=== PATIENT | female | born 1950 | race Caucasian/White ===

== ENCOUNTER 2018-01-04 16:22 | Emergency (ER) | payer MEDICARE, MEDICAID ==
[~2018-01-04] VITALS: Ht 160 cm; Wt 82.3 kg
[~2018-01-04 16:22] MED LIST: ALBU18HF2 INH; AMIO200T57 PO; AMLO2.5T2 PO; BUDE10.2; FURO-150 PO; LOSA100T28; METF500T PO; SERT25TA PO; TIOT4MIS2; TIOT4MIS3
[2018-01-04 16:24] VITALS: BP 131/77
[2018-01-04] MEDS ORDERED: TETanus/Pertussis (Acell)/Diphther VAC/PF (Tdap-Adult) 0.5ml syringe IM ONE (17:20)
[2018-01-04] MEDS ORDERED: CLIN300C85 PO (17:25)
== END 2018-01-04 17:54 | disposition home or self-care (01) ==
LOC: ER 16:23
DX: L03.116 Cellulitis of left lower limb (principal); L97.329 Non-pressure chronic ulcer of left ankle with unspecified severity; I10 Essential (primary) hypertension; J44.9 Chronic obstructive pulmonary disease, unspecified; E11.9 Type 2 diabetes mellitus without complications; Z86.73 Personal history of transient ischemic attack (TIA), and cerebral infarction without residual deficits; Z98.890 Other specified postprocedural states; Z88.0 Allergy status to penicillin; Z88.8 Allergy status to other drugs, medicaments and biological substances; Z79.84 Long term (current) use of oral hypoglycemic drugs; Z79.899 Other long term (current) drug therapy
CPT/HCPCS: 90471; 90715; 99283

== ENCOUNTER 2018-04-25 08:00 | Outpatient (CLI) | payer MEDICARE, MEDICAID ==
[~2018-04-25 08:00] MED LIST changes: +AMIO200T40 PO; -AMIO200T57 PO; +CLIN300C85 PO; +LOSA100T15; -LOSA100T28
== END 2018-04-25 23:59 | disposition home or self-care (01) ==
LOC: RT 08:00
PROVIDERS: ATTEND Internal Medicine Critical Care Medicine
DX: J44.9 Chronic obstructive pulmonary disease, unspecified (principal); I11.0 Hypertensive heart disease with heart failure; I50.9 Heart failure, unspecified; E11.9 Type 2 diabetes mellitus without complications; I48.91 Unspecified atrial fibrillation; I25.2 Old myocardial infarction; I73.9 Peripheral vascular disease, unspecified; E78.5 Hyperlipidemia, unspecified; M81.0 Age-related osteoporosis without current pathological fracture; M19.90 Unspecified osteoarthritis, unspecified site; Z88.0 Allergy status to penicillin; Z88.5 Allergy status to narcotic agent; Z88.1 Allergy status to other antibiotic agents; Z88.8 Allergy status to other drugs, medicaments and biological substances; Z79.899 Other long term (current) drug therapy; Z79.84 Long term (current) use of oral hypoglycemic drugs; Z87.891 Personal history of nicotine dependence
CPT/HCPCS: 94618

== ENCOUNTER 2018-07-14 13:59 | Emergency (ER) | payer MEDICARE, MEDICAID ==
[~2018-07-14] VITALS: Ht 160 cm; Wt 81.0 kg
[~2018-07-14 13:59] MED LIST changes: -LOSA100T15; +LOSA100T57
[2018-07-14 14:38] LABS: BASOPHILS % (AUTO) 0.3 % (0-1); EOSINOPHILS # (AUTO) 0.5 X10'3 (0-0.9); EOSINOPHILS % (AUTO) 4.8 % (0-6); HEMATOCRIT 41.9 % (35.0-45.0); HEMOGLOBIN 13.6 g/dl (12.0-16.0); LYMPHOCYTES # (AUTO) 1.3 X10'3 (1.1-4.8); LYMPHOCYTES % (AUTO) 12.8 % (21-51); MEAN CORPUSCULAR HEMOGLOBIN 27.3 PG (27.0-31.0); MEAN CORPUSCULAR HGB CONC 32.5 % (33.0-36.5); MEAN PLATELET VOLUME 7.3 FL (7.4-10.4); MONOCYTES # (AUTO) 0.8 X10'3 (0-0.9); MONOCYTES % (AUTO) 7.6 % (2-12); NEUTROPHILS # (AUTO) 7.7 X10'3 (1.8-7.7); NEUTROPHILS % (AUTO) 74.5 % (42-75); PLATELET COUNT 335 X10'3 (140-440); RED BLOOD COUNT 4.99 X10'6 (4.20-5.60); WHITE BLOOD COUNT 10.4 X10'3 (4.5-11.0)
[2018-07-14 14:54] LABS: PARTIAL THROMBOPLASTIN TIME 28 SECONDS (22-32); PROTHROMBIN TIME 10.4 SECONDS (9.0-12.0)
[2018-07-14 15:00] LABS: ALANINE AMINOTRANSFERASE 34 U/L (12-78); ALBUMIN 3.5 G/DL (3.4-5.0); ALBUMIN/GLOBULIN RATIO 0.8 (1.1-1.5); ALKALINE PHOSPHATASE 93 IU/L (46-116); ANION GAP 6 (8-16); ASPARTATE AMINO TRANSFERASE 30 U/L (10-37); BLOOD UREA NITROGEN 20 MG/DL (7-18); BUN/CREATININE RATIO 21.3 (6.6-38.0); CALCIUM 8.6 MG/DL (8.5-10.1); CHLORIDE 103 MMOL/L (99-107); CREATININE 0.94 MG/DL (0.40-0.90); GLUCOSE 103 MG/DL (70-104); POTASSIUM 3.9 MMOL/L (3.5-5.1); SODIUM 140 MMOL/L (135-145); TOTAL CARBON DIOXIDE 30.8 MMOL/L (24-32); TOTAL PROTEIN 7.9 G/DL (6.4-8.2); eGFR 59 ML/MIN
[2018-07-14] MEDS ORDERED: levoFLOXACIN 750MG TABLET PO ONE (15:30)
[2018-07-14] MEDS ORDERED: furosemide 10 MG/1 ML 10ml inj IV ONE (15:30)
[2018-07-14] MEDS ORDERED: LEVO750T21 PO (15:31)
[2018-07-14] MEDS ORDERED: furosemide 20MG tablet PO ONE (15:35)
[2018-07-14 16:02] VITALS: BP 116/69
== END 2018-07-14 16:32 | disposition home or self-care (01) ==
LOC: ER 14:00
DX: I50.9 Heart failure, unspecified (principal); R05 Cough; I11.0 Hypertensive heart disease with heart failure; J44.9 Chronic obstructive pulmonary disease, unspecified; E11.9 Type 2 diabetes mellitus without complications; Z86.73 Personal history of transient ischemic attack (TIA), and cerebral infarction without residual deficits; Z87.891 Personal history of nicotine dependence; Z98.890 Other specified postprocedural states; Z88.0 Allergy status to penicillin; Z88.5 Allergy status to narcotic agent; Z79.1 Long term (current) use of non-steroidal anti-inflammatories (NSAID); Z79.899 Other long term (current) drug therapy
CPT/HCPCS: 36415; 71045; 80053; 83880; 84484; 85025; 85610; 85730; 93005; 99284

== ENCOUNTER 2018-08-16 18:28 | Emergency (ER) | payer MEDICARE, MEDICAID ==
[~2018-08-16] VITALS: Ht 157.5 cm; Wt 77.6 kg
[2018-08-16] MEDS ORDERED: LIDOcaine 1% w/epiNEPHrine 1:200,000 30ml vial IM ONE (19:50)
[2018-08-16] MEDS ORDERED: tetanus & diphtheria toxoid (Td) vaccine 0.5ml IMVAC ONE (20:15)
[2018-08-16] MEDS ORDERED: TETanus/Pertussis (Acell)/Diphther VAC/PF (Tdap-Adult) 0.5ml syringe IMVAC ONE (20:20)
[2018-08-16] MEDS ORDERED: CEPH500C5 PO (20:29)
[2018-08-16 20:38] VITALS: BP 102/72
== END 2018-08-16 21:00 | disposition home or self-care (01) ==
LOC: ER 18:29
DX: S71.112A Laceration without foreign body, left thigh, initial encounter (principal); S70.11XA Contusion of right thigh, initial encounter; M54.2 Cervicalgia; I11.0 Hypertensive heart disease with heart failure; I50.9 Heart failure, unspecified; J44.9 Chronic obstructive pulmonary disease, unspecified; E11.9 Type 2 diabetes mellitus without complications; Z88.1 Allergy status to other antibiotic agents; Z88.6 Allergy status to analgesic agent; Z79.899 Other long term (current) drug therapy; Z86.718 Personal history of other venous thrombosis and embolism; Z86.73 Personal history of transient ischemic attack (TIA), and cerebral infarction without residual deficits; W01.198A Fall on same level from slipping, tripping and stumbling with subsequent striking against other object, initial encounter; Y93.89 Activity, other specified; Y92.89 Other specified places as the place of occurrence of the external cause; Y99.8 Other external cause status; Z88.0 Allergy status to penicillin
CPT/HCPCS: 12002; 90471; 90715; 99284; J3490

== ENCOUNTER 2018-09-12 10:00 | Day surgery (SDC) | payer MEDICARE, MEDICAID ==
[~2018-09-12 10:00] MED LIST changes: +CEPH500C5 PO; +CLIN-96 PO; -CLIN300C85 PO
[2018-09-12] MEDS ORDERED: LIDOcaine/PRILOcaine 5gm cream TP ONE (10:57)
[2018-09-12] MEDS ORDERED: ATOR40TA PO (11:29)
[2018-09-12] MEDS ORDERED: GLIM4TAB79 PO (11:29)
--- NOTE | 2018-09-12 11:45 | NUR ---
Patient ambulated independently from [place] with her home O2 accompanied by her sister and was admitted to outpatient wound care for physician visit with Jarred Velasquez MD. Dressing removed, wound cleansed and Emla cream applied per order. New patient assessment completed with review of patient's medical history and current medications. 1104 - blood glucose 150. Patient instructed that elevated blood sugars delay healing of the wound and can cause further complications including but not limited to amputation of toes or feet. 1100 - Dr. Velasquez at bedside accompanied by RN. Wound assessed, time out performed by MD/RN. Wound debrided as detailed in the physician progress/procedure note. Plan of care discussed with patient. Dressings placed per MD orders. Patient instructed on the signs and symptoms of infection and to call the Wound Center if any occur or to go to the ED if we are closed: Increased pain in wound Increase in drainage from the wound Redness in the skin surrounding the wound Bleeding from the wound Temperature of 101 or greater Patient instructed that the weight of their body puts a large amount of pressure on their wounds. This pressure keeps the new tissue from growing and inhibits new blood vessels from forming. Explained that, if they continue to bear weight on a body part that has a wound, the time it takes to heal the wound increases, the wound may get worse or the wound may not heal at all. Patient verbalized understanding of all discharge instructions and plan of care and ambulated accompanied by her sister independently out to [facility] in stable condition with no sign or symptom of distress at time of discharge.
== END 2018-09-12 12:50 | disposition home or self-care (01) ==
LOC: WOUND CARE 10:00
PROVIDERS: ATTEND Surgery
DX: E11.622 Type 2 diabetes mellitus with other skin ulcer (principal); L98.492 Non-pressure chronic ulcer of skin of other sites with fat layer exposed; E11.65 Type 2 diabetes mellitus with hyperglycemia; J44.9 Chronic obstructive pulmonary disease, unspecified; I11.0 Hypertensive heart disease with heart failure; I50.9 Heart failure, unspecified; Z79.899 Other long term (current) drug therapy; Z86.718 Personal history of other venous thrombosis and embolism; Z86.73 Personal history of transient ischemic attack (TIA), and cerebral infarction without residual deficits
CPT/HCPCS: 82948; A6021; A6206; A6212

== ENCOUNTER 2018-09-18 09:55 | Day surgery (SDC) | payer MEDICARE, MEDICAID ==
[~2018-09-18 09:55] MED LIST changes: +ATOR40TA PO; -CEPH500C5 PO; -CLIN-96 PO; +GLIM4TAB79 PO
[2018-09-18] MEDS ORDERED: LIDOcaine/PRILOcaine 5gm cream TP ONE (10:30)
--- NOTE | 2018-09-18 13:55 | NUR ---
Patient ambulated independently from [facility] and was admitted to outpatient wound care for physician visit with Jarred Velasquez MD. Dressing removed, wound cleansed and Emla cream applied per order. Patient assessed for changes in conditions, medications and medical history. Dr. Velasquez at bedside accompanied by RN. Wound assessed, time out performed by MD/RN. Wound debrided as detailed in the physician progress/procedure note. Plan of care discussed with patient. Dressings placed per MD orders. Patient instructed on the signs and symptoms of infection and to call the Wound Center if any occur or to go to the ED if we are closed: Increased pain in wound Increase in drainage from the wound Redness in the skin surrounding the wound Bleeding from the wound Temperature of 101 or greater Patient instructed that elevated blood sugars delay healing of the wound and can cause further complications including but not limited to amputation of toes or feet. Patient instructed that the weight of their body puts a large amount of pressure on their wounds. This pressure keeps the new tissue from growing and inhibits new blood vessels from forming. Explained that, if they continue to bear weight on a body part that has a wound, the time it takes to heal the wound increases, the wound may get worse or the wound may not heal at all. Patient verbalized understanding of all discharge instructions and plan of care and ambulated independently out to [facility] in stable condition with no sign or symptom of distress at time of discharge. Addendum: 09/18/18 at 1359 by Dana Delaney RN Amended: Links added.
== END 2018-09-18 11:48 | disposition home or self-care (01) ==
LOC: WOUND CARE 09:55
PROVIDERS: ATTEND Surgery
DX: E11.622 Type 2 diabetes mellitus with other skin ulcer (principal); L98.492 Non-pressure chronic ulcer of skin of other sites with fat layer exposed; E11.65 Type 2 diabetes mellitus with hyperglycemia; J44.9 Chronic obstructive pulmonary disease, unspecified; I11.0 Hypertensive heart disease with heart failure; I50.9 Heart failure, unspecified; M19.90 Unspecified osteoarthritis, unspecified site; Z79.899 Other long term (current) drug therapy; Z86.718 Personal history of other venous thrombosis and embolism; Z86.73 Personal history of transient ischemic attack (TIA), and cerebral infarction without residual deficits; Z87.442 Personal history of urinary calculi
CPT/HCPCS: 11042; 36416; 82948; A6209; A6021; A6206

== ENCOUNTER 2018-09-25 10:14 | Day surgery (SDC) | payer MEDICARE, MEDICAID ==
[2018-09-25] MEDS ORDERED: LIDOcaine/PRILOcaine 5gm cream TP ONE (11:03)
--- NOTE | 2018-09-25 11:48 | NUR ---
Patient ambulated independently from [facility] with O2 @ 3liters. Patient admitted to outpatient wound care for physician visit with Jarred Velasquez MD. Dressing removed, wound cleansed and Emla cream applied per order. Patient assessed for changes in conditions, medications and medical history. Dr. Velasquez at bedside accompanied by RN. Wound assessed, time out performed by MD/RN. Wound debrided as detailed in the physician progress/procedure note. Plan of care discussed with patient. Dressings placed per MD orders. Patient instructed on the signs and symptoms of infection and to call the Wound Center if any occur or to go to the ED if we are closed: Increased pain in wound Increase in drainage from the wound Redness in the skin surrounding the wound Bleeding from the wound Temperature of 101 or greater Patient instructed that elevated blood sugars delay healing of the wound and can cause further complications including but not limited to amputation of toes or feet. Patient instructed that the weight of their body puts a large amount of pressure on their wounds. This pressure keeps the new tissue from growing and inhibits new blood vessels from forming. Explained that, if they continue to bear weight on a body part that has a wound, the time it takes to heal the wound increases, the wound may get worse or the wound may not heal at all. Patient verbalized understanding of all discharge instructions and plan of care and ambulated independently out to [facility] in stable condition with no sign or symptom of distress at time of discharge. Addendum: 09/25/18 at 1152 by Dana Delaney RN Amended: Links added.
== END 2018-09-25 12:10 | disposition home or self-care (01) ==
LOC: WOUND CARE 10:14
PROVIDERS: ATTEND Surgery
DX: E11.622 Type 2 diabetes mellitus with other skin ulcer (principal); L98.492 Non-pressure chronic ulcer of skin of other sites with fat layer exposed; E11.65 Type 2 diabetes mellitus with hyperglycemia; J44.9 Chronic obstructive pulmonary disease, unspecified; I11.0 Hypertensive heart disease with heart failure; I50.9 Heart failure, unspecified; M19.90 Unspecified osteoarthritis, unspecified site; Z79.899 Other long term (current) drug therapy; Z86.718 Personal history of other venous thrombosis and embolism; Z86.73 Personal history of transient ischemic attack (TIA), and cerebral infarction without residual deficits; Z87.442 Personal history of urinary calculi
CPT/HCPCS: 36416; 82948; A6209; A6222; C5271; Q4102; A6250

== ENCOUNTER 2018-10-02 10:35 | Outpatient (CLI) | payer MEDICARE, MEDICAID ==
--- NOTE | 2018-10-02 12:30 | NUR ---
Patient ambulated independently from [facility] and was admitted to outpatient wound care for physician visit with Jarred Velasquez MD. Dressing removed, wound cleansed. Patient assessed for changes in conditions, medications and medical history. 1121 - blood glucose 72. Patient is informed of her reading by RN and asked if she felt good with this blood sugar and patient stated "yes". 1145 - Dr. Velasquez at bedside accompanied by RN. Wound assessed by MD, orders written Plan of care discussed with patient. Dressings placed per MD orders. Patient instructed on the signs and symptoms of infection and to call the Wound Center if any occur or to go to the ED if we are closed: Increased pain in wound Increase in drainage from the wound Redness in the skin surrounding the wound Bleeding from the wound Temperature of 101 or greater Patient instructed that the weight of their body puts a large amount of pressure on their wounds. This pressure keeps the new tissue from growing and inhibits new blood vessels from forming. Explained that, if they continue to bear weight on a body part that has a wound, the time it takes to heal the wound increases, the wound may get worse or the wound may not heal at all. Patient verbalized understanding of all discharge instructions and plan of care and ambulated independently out to [facility] in stable condition with no sign or symptom of distress at time of discharge.
== END 2018-10-02 12:02 | disposition home or self-care (01) ==
LOC: WOUND CARE 10:35
PROVIDERS: ATTEND Surgery
DX: E11.622 Type 2 diabetes mellitus with other skin ulcer (principal); L97.821 Non-pressure chronic ulcer of other part of left lower leg limited to breakdown of skin; E11.65 Type 2 diabetes mellitus with hyperglycemia; J44.9 Chronic obstructive pulmonary disease, unspecified; I11.0 Hypertensive heart disease with heart failure; I50.9 Heart failure, unspecified; M19.90 Unspecified osteoarthritis, unspecified site; Z79.899 Other long term (current) drug therapy; Z86.718 Personal history of other venous thrombosis and embolism; Z86.73 Personal history of transient ischemic attack (TIA), and cerebral infarction without residual deficits; Z87.442 Personal history of urinary calculi
CPT/HCPCS: 82948; G0463; A4615; A6021; A6212

== ENCOUNTER 2018-10-10 11:30 | Day surgery (SDC) | payer MEDICARE, MEDICAID ==
[2018-10-10] MEDS ORDERED: LIDOcaine/PRILOcaine 5gm cream TP ONE (11:55)
--- NOTE | 2018-10-10 12:45 | NUR ---
Patient ambulated with walker from [facility] and was admitted to outpatient wound care for physician visit with Jarred Velasquez MD. Dressing removed, wound cleansed and Emla cream applied per order. Patient assessed for changes in conditions, medications and medical history. 1215 - Dr. Velasquez at bedside accompanied by RN. Wound assessed, time out performed by MD/RN. Wound debrided and procedure performed as detailed in the physician progress/procedure note. Plan of care discussed with patient. Dressings placed per MD orders. Patient instructed on the signs and symptoms of infection and to call the Wound Center if any occur or to go to the ED if we are closed: Increased pain in wound Increase in drainage from the wound Redness in the skin surrounding the wound Bleeding from the wound Temperature of 101 or greater Patient instructed that the weight of their body puts a large amount of pressure on their wounds. This pressure keeps the new tissue from growing and inhibits new blood vessels from forming. Explained that, if they continue to bear weight on a body part that has a wound, the time it takes to heal the wound increases, the wound may get worse or the wound may not heal at all. Patient verbalized understanding of all discharge instructions and plan of care and ambulated with walker out to [facility] in stable condition with no sign or symptom of distress at time of discharge.
== END 2018-10-10 12:25 | disposition home or self-care (01) ==
LOC: WOUND CARE 11:30
PROVIDERS: ATTEND Surgery
DX: E11.622 Type 2 diabetes mellitus with other skin ulcer (principal); L97.821 Non-pressure chronic ulcer of other part of left lower leg limited to breakdown of skin; E11.65 Type 2 diabetes mellitus with hyperglycemia; J44.9 Chronic obstructive pulmonary disease, unspecified; I11.0 Hypertensive heart disease with heart failure; I50.9 Heart failure, unspecified; M19.90 Unspecified osteoarthritis, unspecified site; Z79.899 Other long term (current) drug therapy; Z86.718 Personal history of other venous thrombosis and embolism; Z86.73 Personal history of transient ischemic attack (TIA), and cerebral infarction without residual deficits; Z87.442 Personal history of urinary calculi
CPT/HCPCS: A6209; A6222; C5271; Q4102; A4615; A6250; A6446

== ENCOUNTER 2018-10-15 08:49 | Outpatient (CLI) | payer MEDICARE, MEDICAID ==
--- NOTE | 2018-10-15 10:26 | NUR ---
Patient ambulated independently from [facility] and was admitted to outpatient wound care clinic for nursing visit, under direct supervision of . Patient placed on O2 @3liters per order. Dressing removed, graft in place. Wound cleansed with normal saline. Patient assessed for changes in conditions, medications and medical history. Dressings reapplied per physician orders. Patient instructed on the signs and symptoms of infection and to call the Wound Center if any occur or to go to the ED if we are closed: Increased pain in wound Increase in drainage from the wound Redness in the skin surrounding the wound Bleeding from the wound Temperature of 101 or greater Patient instructed that the weight of their body puts a large amount of pressure on their wounds. This pressure keeps the new tissue from growing and inhibits new blood vessels from forming. Explained that, if they continue to bear weight on a body part that has a wound, the time it takes to heal the wound increases, the wound may get worse or the wound may not heal at all. Patient verbalized understanding of all discharge instructions and plan of care and ambulated independently out to [facility] in stable condition with no sign or symptom of distress at time of discharge. Addendum: 10/15/18 at 1030 by Dana Delaney RN Amended: Links added.
== END 2018-10-15 09:19 | disposition home or self-care (01) ==
LOC: WOUND CARE 08:49 → EDSTATUS 09:00 → WOUND CARE 09:19
PROVIDERS: ATTEND Surgery
DX: E11.622 Type 2 diabetes mellitus with other skin ulcer (principal); L97.821 Non-pressure chronic ulcer of other part of left lower leg limited to breakdown of skin; E11.65 Type 2 diabetes mellitus with hyperglycemia; J44.9 Chronic obstructive pulmonary disease, unspecified; I11.0 Hypertensive heart disease with heart failure; I50.9 Heart failure, unspecified; M19.90 Unspecified osteoarthritis, unspecified site; Z79.899 Other long term (current) drug therapy; Z86.718 Personal history of other venous thrombosis and embolism; Z86.73 Personal history of transient ischemic attack (TIA), and cerebral infarction without residual deficits; Z87.442 Personal history of urinary calculi
CPT/HCPCS: 82948; G0463; A6212

== ENCOUNTER 2018-10-17 09:00 | Outpatient (CLI) | payer MEDICARE, MEDICAID ==
--- NOTE | 2018-10-17 15:18 | NUR ---
Patient ambulated independently from [facility] and was admitted to outpatient wound care for physician visit with Jarred Velasquez MD. Dressing removed and wound cleansed. Patient assessed for changes in conditions, medications and medical history. Dr. Velasquez at bedside accompanied by RN. Wound assessed, time out performed by MD/RN. Wound debrided as detailed in the physician progress/procedure note. Plan of care discussed with patient. Dressings placed per MD orders. Patient instructed on the signs and symptoms of infection and to call the Wound Center if any occur or to go to the ED if we are closed: Increased pain in wound Increase in drainage from the wound Redness in the skin surrounding the wound Bleeding from the wound Temperature of 101 or greater Patient instructed that elevated blood sugars delay healing of the wound and can cause further complications including but not limited to amputation of toes or feet. Patient instructed that the weight of their body puts a large amount of pressure on their wounds. This pressure keeps the new tissue from growing and inhibits new blood vessels from forming. Explained that, if they continue to bear weight on a body part that has a wound, the time it takes to heal the wound increases, the wound may get worse or the wound may not heal at all. Patient verbalized understanding of all discharge instructions and plan of care and ambulated independently out to [facility] in stable condition with no sign or symptom of distress at time of discharge. Addendum: 10/17/18 at 1522 by Dana Delaney RN Amended: Links added.
== END 2018-10-17 11:20 | disposition home or self-care (01) ==
LOC: EDSTATUS 09:00 → WOUND CARE 09:00
PROVIDERS: ATTEND Surgery
DX: E11.622 Type 2 diabetes mellitus with other skin ulcer (principal); L97.821 Non-pressure chronic ulcer of other part of left lower leg limited to breakdown of skin; E11.65 Type 2 diabetes mellitus with hyperglycemia; J44.9 Chronic obstructive pulmonary disease, unspecified; I11.0 Hypertensive heart disease with heart failure; I50.9 Heart failure, unspecified; M19.90 Unspecified osteoarthritis, unspecified site; Z79.899 Other long term (current) drug therapy; Z86.718 Personal history of other venous thrombosis and embolism; Z86.73 Personal history of transient ischemic attack (TIA), and cerebral infarction without residual deficits; Z87.442 Personal history of urinary calculi
CPT/HCPCS: 36416; 82948; G0463; A6021; A6206; A6212

== ENCOUNTER 2018-10-24 08:45 | Day surgery (SDC) | payer MEDICARE, MEDICAID ==
[2018-10-24] MEDS ORDERED: LIDOcaine/PRILOcaine 5gm cream TP ONE (09:47)
--- NOTE | 2018-10-24 14:17 | NUR ---
0900 Patient ambulated safely into [facility]. Patient admitted to outpatient wound care clinic for follow-up visit with physician. Dressing removed, wound cleansed. Patient assessed for changes in conditions, medications and medical history. Patient showed no s/s of distress at time of assessment. 0955 at bedside accompanied by RN. Wounds assessed, time out performed and debridement with application of [place] wound matrix done today as detailed in the physician progress/procedure note. Plan of care discussed with patient. Dressings placed per MD orders. Patient instructed on the signs and symptoms of infection and to call the Wound Center if any occur or to go to the ED if we are closed: Increased pain in wound Increase in drainage from the wound Redness in the skin surrounding the wound Bleeding from the wound Temperature of 101 or greater Patient instructed that the weight of their body puts a large amount of pressure on their wounds. This pressure keeps the new tissue from growing and inhibits new blood vessels from forming. Explained that, if they continue to bear weight on a body part that has a wound, the time it takes to heal the wound increases, the wound may get worse or the wound may not heal at all. Patient verbalized understanding of all discharge instructions and plan of care. Patient ambulated independently out to [facility] and is in stable condition with no sign or symptom of distress at time of discharge.
== END 2018-10-24 10:35 | disposition home or self-care (01) ==
LOC: WOUND CARE 08:45
PROVIDERS: ATTEND Surgery
DX: E11.622 Type 2 diabetes mellitus with other skin ulcer (principal); L97.821 Non-pressure chronic ulcer of other part of left lower leg limited to breakdown of skin; E11.65 Type 2 diabetes mellitus with hyperglycemia; J44.9 Chronic obstructive pulmonary disease, unspecified; I11.0 Hypertensive heart disease with heart failure; I50.9 Heart failure, unspecified; M19.90 Unspecified osteoarthritis, unspecified site; Z79.899 Other long term (current) drug therapy; Z86.718 Personal history of other venous thrombosis and embolism; Z86.73 Personal history of transient ischemic attack (TIA), and cerebral infarction without residual deficits; Z87.442 Personal history of urinary calculi
CPT/HCPCS: 36416; 82948; A6222; C5271; Q4102; A6250

== ENCOUNTER 2018-10-31 08:40 | Outpatient (CLI) | payer MEDICARE, MEDICAID ==
--- NOTE | 2018-10-31 10:45 | NUR ---
Patient ambulated independently from [facility] and was admitted to outpatient wound care for physician visit with Jarred Velasquez MD. Dressing removed, wound cleansed. Patient assessed for changes in conditions, medications and medical history. 0929 - blood glucose 97. Patient instructed that elevated blood sugars delay healing of the wound and can cause further complications including but not limited to amputation of toes or feet. 1005 - Dr. Velasquez at bedside accompanied by RN. Wound assessed by MD, orders written. Plan of care discussed with patient. Dressings placed per MD orders. Patient instructed on the signs and symptoms of infection and to call the Wound Center if any occur or to go to the ED if we are closed: Increased pain in wound Increase in drainage from the wound Redness in the skin surrounding the wound Bleeding from the wound Temperature of 101 or greater Patient instructed that the weight of their body puts a large amount of pressure on their wounds. This pressure keeps the new tissue from growing and inhibits new blood vessels from forming. Explained that, if they continue to bear weight on a body part that has a wound, the time it takes to heal the wound increases, the wound may get worse or the wound may not heal at all. Patient verbalized understanding of all discharge instructions and plan of care and ambulated independently out to [facility] in stable condition with no sign or symptom of distress at time of discharge.
== END 2018-10-31 10:20 | disposition home or self-care (01) ==
LOC: WOUND CARE 08:40 → EDSTATUS 09:00 → WOUND CARE 10:20
PROVIDERS: ATTEND Surgery
DX: E11.622 Type 2 diabetes mellitus with other skin ulcer (principal); L97.821 Non-pressure chronic ulcer of other part of left lower leg limited to breakdown of skin; E11.65 Type 2 diabetes mellitus with hyperglycemia; J44.9 Chronic obstructive pulmonary disease, unspecified; I11.0 Hypertensive heart disease with heart failure; I50.9 Heart failure, unspecified; M19.90 Unspecified osteoarthritis, unspecified site; Z79.899 Other long term (current) drug therapy; Z86.718 Personal history of other venous thrombosis and embolism; Z86.73 Personal history of transient ischemic attack (TIA), and cerebral infarction without residual deficits; Z87.442 Personal history of urinary calculi
CPT/HCPCS: 36416; 82948; A6222; G0463; A4615; A6212

== ENCOUNTER 2018-11-07 08:50 | Outpatient (CLI) | payer MEDICARE, MEDICAID ==
[2018-11-07] MEDS ORDERED: dextrose ORAL solution 15 GM/59 ML bottle ONE (09:56)
--- NOTE | 2018-11-07 14:45 | NUR ---
Patient ambulated independently from [facility] and was admitted to outpatient wound care for physician visit with Jarred Velasquez MD. Dressing removed, wound cleansed. Patient assessed for changes in conditions, medications and medical history. 0955 - blood glucose 59. Dex 4 given per protocol. Patient states she is "fasting" for bloodwork today yet nonetheless she took her oral diabetic medication; patient is advised by RN that this is not a good idea. 1010 - Dr. Velasquez at bedside accompanied by RN. Wound assessed by MD and is declared healed. Patient discharged from the wound clinic to follow up on an as needed basis. Plan of care discussed with patient. Dressings placed per MD orders. 1025 - glucose check is 94. Patient is advised to get food as soon as she has her blood drawn, which she is on her way to do at this time. Patient instructed on the signs and symptoms of infection and to call the Wound Center if any occur or to go to the ED if we are closed: Increased pain in wound Increase in drainage from the wound Redness in the skin surrounding the wound Bleeding from the wound Temperature of 101 or greater Patient instructed that the weight of their body puts a large amount of pressure on their wounds. This pressure keeps the new tissue from growing and inhibits new blood vessels from forming. Explained that, if they continue to bear weight on a body part that has a wound, the time it takes to heal the wound increases, the wound may get worse or the wound may not heal at all. Patient verbalized understanding of all discharge instructions and plan of care and ambulated independently out to [facility] in stable condition with no sign or symptom of distress at time of discharge.
== END 2018-11-07 10:32 | disposition home or self-care (01) ==
LOC: WOUND CARE 08:50 → EDSTATUS 09:00 → WOUND CARE 10:32
PROVIDERS: ATTEND Surgery
DX: E11.622 Type 2 diabetes mellitus with other skin ulcer (principal); L97.821 Non-pressure chronic ulcer of other part of left lower leg limited to breakdown of skin; E11.65 Type 2 diabetes mellitus with hyperglycemia; J44.9 Chronic obstructive pulmonary disease, unspecified; I11.0 Hypertensive heart disease with heart failure; I50.9 Heart failure, unspecified; M19.90 Unspecified osteoarthritis, unspecified site; Z79.899 Other long term (current) drug therapy; Z86.718 Personal history of other venous thrombosis and embolism; Z86.73 Personal history of transient ischemic attack (TIA), and cerebral infarction without residual deficits; Z87.442 Personal history of urinary calculi
CPT/HCPCS: 36416; 82948; G0463; A6021; A6206; A6212

== ENCOUNTER 2019-03-11 13:58 | Emergency (ER) | payer MEDICARE, MEDICAID ==
[~2019-03-11] VITALS: Ht 160 cm; Wt 80.0 kg
[~2019-03-11 13:58] MED LIST changes: -AMIO200T40 PO; +AMIO200T61 PO; +GLIM4TAB4 PO; -GLIM4TAB79 PO
[2019-03-11 14:14] VITALS: BP 113/60
[2019-03-11 14:39] LABS: BASOPHILS # (AUTO) 0.1 X10'3 (0-0.2); BASOPHILS % (AUTO) 1.1 % (0-1); EOSINOPHILS # (AUTO) 0.3 X10'3 (0-0.9); HEMATOCRIT 36.6 % (35.0-45.0); HEMOGLOBIN 11.7 g/dl (12.0-16.0); LYMPHOCYTES # (AUTO) 1.6 X10'3 (1.1-4.8); MEAN CORPUSCULAR HEMOGLOBIN 26.4 PG (27.0-31.0); MEAN CORPUSCULAR HGB CONC 31.9 g/dL (33.0-36.5); MEAN CORPUSCULAR VOLUME 82.8 FL (78-98); MEAN PLATELET VOLUME 7.4 FL (7.4-10.4); MONOCYTES # (AUTO) 0.8 X10'3 (0-0.9); MONOCYTES % (AUTO) 11.6 % (2-12); NEUTROPHILS # (AUTO) 4.1 X10'3 (1.8-7.7); NEUTROPHILS % (AUTO) 60.3 % (42-75); PLATELET COUNT 293 X10'3 (140-440); RED BLOOD COUNT 4.41 X10'6 (4.20-5.60); RED CELL DISTRIBUTION WIDTH 17.8 % (11.5-14.5); WHITE BLOOD COUNT 6.9 X10'3 (4.5-11.0)
[2019-03-11 14:52] LABS: ALANINE AMINOTRANSFERASE 27 U/L (12-78); ALBUMIN 3.3 G/DL (3.4-5.0); ALBUMIN/GLOBULIN RATIO 0.8 (1.1-1.5); ALKALINE PHOSPHATASE 90 IU/L (46-116); ANION GAP 6 (8-16); ASPARTATE AMINO TRANSFERASE 21 U/L (10-37); BILIRUBIN,TOTAL 0.6 MG/DL (0.1-1.0); BLOOD UREA NITROGEN 25 MG/DL (7-18); BUN/CREATININE RATIO 26.6 (6.6-38.0); CALCIUM 8.6 MG/DL (8.5-10.1); CHLORIDE 106 MMOL/L (99-107); CREATININE 0.94 MG/DL (0.40-0.90); GLUCOSE 194 MG/DL (70-104); PARTIAL THROMBOPLASTIN TIME 27 SECONDS (22-32); POTASSIUM 4.4 MMOL/L (3.5-5.1); SODIUM 142 MMOL/L (135-145); TOTAL CARBON DIOXIDE 29.7 MMOL/L (24-32); TOTAL PROTEIN 7.5 G/DL (6.4-8.2); eGFR 59 ML/MIN
[2019-03-11] MEDS ORDERED: ipratropium/albuterol 3ml nebule NEB ONE (15:50)
[2019-03-11] MEDS ORDERED: methylPREDNISolone sod succ 125mg/2ml vial IV ONE (15:50)
[2019-03-11] MEDS ORDERED: predniSONE 20 mg tablet PO ONE (16:35)
[2019-03-11] MEDS ORDERED: ipratropium/albuterol 3ml nebule ONE (17:16)
[2019-03-11] MEDS ORDERED: PRED20TA PO (17:20)
== END 2019-03-11 17:41 | disposition home or self-care (01) ==
LOC: ER 13:59
DX: J44.1 Chronic obstructive pulmonary disease with (acute) exacerbation (principal); I48.91 Unspecified atrial fibrillation; I50.9 Heart failure, unspecified; E11.9 Type 2 diabetes mellitus without complications; Z86.73 Personal history of transient ischemic attack (TIA), and cerebral infarction without residual deficits; Z98.890 Other specified postprocedural states; Z88.0 Allergy status to penicillin; Z88.1 Allergy status to other antibiotic agents; Z88.5 Allergy status to narcotic agent; Z79.84 Long term (current) use of oral hypoglycemic drugs; Z79.899 Other long term (current) drug therapy
CPT/HCPCS: 36415; 71045; 80053; 84484; 85025; 85610; 85730; 93005; 94640; 99284; J7512

== ENCOUNTER 2019-06-02 12:20 | Emergency (ER) | payer MEDICARE, MEDICAID ==
[~2019-06-02] VITALS: Ht 157.5 cm; Wt 90.0 kg
[2019-06-02 13:06] LABS: BASOPHILS # (AUTO) 0.1 X10'3 (0-0.2); BASOPHILS % (AUTO) 0.7 % (0-1); EOSINOPHILS # (AUTO) 0.2 X10'3 (0-0.9); EOSINOPHILS % (AUTO) 2.5 % (0-6); HEMATOCRIT 37.5 % (35.0-45.0); LYMPHOCYTES # (AUTO) 1.2 X10'3 (1.1-4.8); MEAN CORPUSCULAR HEMOGLOBIN 26.4 PG (27.0-31.0); MEAN CORPUSCULAR HGB CONC 32.1 g/dL (33.0-36.5); MEAN CORPUSCULAR VOLUME 82.1 FL (78-98); MEAN PLATELET VOLUME 8.3 FL (7.4-10.4); MONOCYTES # (AUTO) 0.8 X10'3 (0-0.9); MONOCYTES % (AUTO) 11.3 % (2-12); NEUTROPHILS # (AUTO) 4.8 X10'3 (1.8-7.7); NEUTROPHILS % (AUTO) 68.5 % (42-75); PLATELET COUNT 227 X10'3 (140-440); RED BLOOD COUNT 4.56 X10'6 (4.20-5.60); RED CELL DISTRIBUTION WIDTH 16.3 % (11.5-14.5)
[2019-06-02 13:17] LABS: ALANINE AMINOTRANSFERASE 35 U/L (12-78); ALBUMIN 3.4 G/DL (3.4-5.0); ALBUMIN/GLOBULIN RATIO 0.9 (1.1-1.5); ALKALINE PHOSPHATASE 121 IU/L (46-116); ANION GAP 6 (8-16); ASPARTATE AMINO TRANSFERASE 26 U/L (10-37); BILIRUBIN,TOTAL 1.6 MG/DL (0.1-1.0); BLOOD UREA NITROGEN 27 MG/DL (7-18); BUN/CREATININE RATIO 26.2 (6.6-38.0); CALCIUM 9.3 MG/DL (8.5-10.1); CHLORIDE 102 MMOL/L (99-107); CREATININE 1.03 MG/DL (0.40-0.90); GLUCOSE 195 MG/DL (70-104); POTASSIUM 4.4 MMOL/L (3.5-5.1); SODIUM 142 MMOL/L (135-145); TOTAL CARBON DIOXIDE 34.1 MMOL/L (24-32); TOTAL PROTEIN 7.3 G/DL (6.4-8.2); eGFR 53 ML/MIN
[2019-06-02] MEDS ORDERED: ipratropium/albuterol 3ml nebule NEB ONE (14:20)
[2019-06-02] MEDS ORDERED: albuterol 2.5 MG/3 ML nebule NEB ONE (14:20)
[2019-06-02] MEDS ORDERED: methylPREDNISolone sod succ 125mg/2ml vial IV ONE (14:20)
[2019-06-02] MEDS ORDERED: AZIT250T PO (15:09)
[2019-06-02] MEDS ORDERED: PRED20TA PO (15:09)
[2019-06-02] MEDS ORDERED: azithromycin 250mg tablet PO ONE (15:10)
[2019-06-02 15:12] VITALS: BP 165/72
== END 2019-06-02 15:23 | disposition home or self-care (01) ==
LOC: ER 12:20
DX: J44.1 Chronic obstructive pulmonary disease with (acute) exacerbation (principal); I50.9 Heart failure, unspecified; I11.0 Hypertensive heart disease with heart failure; E11.9 Type 2 diabetes mellitus without complications; Z98.890 Other specified postprocedural states; Z86.73 Personal history of transient ischemic attack (TIA), and cerebral infarction without residual deficits; Z88.0 Allergy status to penicillin; Z88.5 Allergy status to narcotic agent; Z79.899 Other long term (current) drug therapy; Z79.2 Long term (current) use of antibiotics
CPT/HCPCS: 36415; 71045; 80053; 83880; 84484; 85025; 93005; 94640; 94760; 96374; 99284; J2930

== ENCOUNTER 2019-07-09 12:50 | Emergency (ER) | payer MEDICARE, MEDICAID ==
[~2019-07-09] VITALS: Ht 158.8 cm; Wt 90.9 kg
[~2019-07-09 12:50] MED LIST changes: +AZIT250T PO; -GLIM4TAB4 PO; +GLIM4TAB7 PO
[2019-07-09 13:38] LABS: BASOPHILS % (AUTO) 0.5 % (0-1); EOSINOPHILS # (AUTO) 0.4 X10'3 (0-0.9); EOSINOPHILS % (AUTO) 5.2 % (0-6); HEMATOCRIT 37.8 % (35.0-45.0); HEMOGLOBIN 12.1 g/dl (12.0-16.0); LYMPHOCYTES # (AUTO) 1.4 X10'3 (1.1-4.8); LYMPHOCYTES % (AUTO) 18.1 % (21-51); MEAN CORPUSCULAR VOLUME 81.1 FL (78-98); MEAN PLATELET VOLUME 8.1 FL (7.4-10.4); MONOCYTES # (AUTO) 0.8 X10'3 (0-0.9); MONOCYTES % (AUTO) 10.7 % (2-12); NEUTROPHILS # (AUTO) 4.9 X10'3 (1.8-7.7); NEUTROPHILS % (AUTO) 65.5 % (42-75); PLATELET COUNT 253 X10'3 (140-440); RED BLOOD COUNT 4.66 X10'6 (4.20-5.60); RED CELL DISTRIBUTION WIDTH 16.5 % (11.5-14.5); WHITE BLOOD COUNT 7.5 X10'3 (4.5-11.0)
[2019-07-09 13:52] LABS: ALANINE AMINOTRANSFERASE 28 U/L (12-78); ALBUMIN 3.2 G/DL (3.4-5.0); ALBUMIN/GLOBULIN RATIO 0.9 (1.1-1.5); ALKALINE PHOSPHATASE 100 IU/L (46-116); ANION GAP 2 (8-16); ASPARTATE AMINO TRANSFERASE 22 U/L (10-37); BILIRUBIN,TOTAL 1.1 MG/DL (0.1-1.0); BLOOD UREA NITROGEN 20 MG/DL (7-18); BUN/CREATININE RATIO 22.2 (6.6-38.0); CALCIUM 8.8 MG/DL (8.5-10.1); CHLORIDE 104 MMOL/L (99-107); GLUCOSE 255 MG/DL (70-104); POTASSIUM 4.2 MMOL/L (3.5-5.1); SODIUM 144 MMOL/L (135-145); TOTAL PROTEIN 6.8 G/DL (6.4-8.2); eGFR 62 ML/MIN
[2019-07-09] MEDS ORDERED: methylPREDNISolone sod succ 125mg/2ml vial IV ONE (17:00)
[2019-07-09] MEDS ORDERED: ipratropium/albuterol 3ml nebule NEB ONE ×2 (17:00→18:10)
[2019-07-09] MEDS ORDERED: PRED20TA PO (19:03)
[2019-07-09] MEDS ORDERED: DOXY100C2 PO (19:03)
[2019-07-09 19:10] VITALS: BP 131/49
== END 2019-07-09 19:12 | disposition home or self-care (01) ==
LOC: ER 12:51
DX: J44.1 Chronic obstructive pulmonary disease with (acute) exacerbation (principal); I48.91 Unspecified atrial fibrillation; I11.0 Hypertensive heart disease with heart failure; I50.9 Heart failure, unspecified; E11.9 Type 2 diabetes mellitus without complications; Z87.891 Personal history of nicotine dependence; Z86.73 Personal history of transient ischemic attack (TIA), and cerebral infarction without residual deficits; Z98.890 Other specified postprocedural states; Z87.01 Personal history of pneumonia (recurrent); Z88.0 Allergy status to penicillin; Z88.1 Allergy status to other antibiotic agents; Z88.5 Allergy status to narcotic agent; Z79.899 Other long term (current) drug therapy
CPT/HCPCS: 36415; 71046; 80053; 85025; 87040; 93005; 94640; 96372; 99284; J2930; 94760

== ENCOUNTER 2019-08-11 10:21 | Emergency (ER) | payer MEDICARE, MEDICAID ==
[~2019-08-11] VITALS: Ht 157.5 cm; Wt 82.1 kg
[2019-08-11] MEDS ORDERED: predniSONE 20 mg tablet PO ONE (11:05)
[2019-08-11] MEDS ORDERED: ipratropium/albuterol 3ml nebule NEB ONE (11:05)
[2019-08-11 11:24] LABS: BASOPHILS % (AUTO) 0.6 % (0-1); EOSINOPHILS # (AUTO) 0.3 X10'3 (0-0.9); EOSINOPHILS % (AUTO) 4.6 % (0-6); HEMATOCRIT 36.2 % (35.0-45.0); HEMOGLOBIN 11.7 g/dl (12.0-16.0); LYMPHOCYTES # (AUTO) 1.4 X10'3 (1.1-4.8); LYMPHOCYTES % (AUTO) 21.2 % (21-51); MEAN CORPUSCULAR HEMOGLOBIN 26.4 PG (27.0-31.0); MEAN CORPUSCULAR HGB CONC 32.3 g/dL (33.0-36.5); MEAN CORPUSCULAR VOLUME 81.9 FL (78-98); MEAN PLATELET VOLUME 7.9 FL (7.4-10.4); MONOCYTES # (AUTO) 0.8 X10'3 (0-0.9); MONOCYTES % (AUTO) 11.4 % (2-12); NEUTROPHILS # (AUTO) 4.2 X10'3 (1.8-7.7); NEUTROPHILS % (AUTO) 62.2 % (42-75); PLATELET COUNT 274 X10'3 (140-440); RED BLOOD COUNT 4.42 X10'6 (4.20-5.60); RED CELL DISTRIBUTION WIDTH 17.7 % (11.5-14.5); WHITE BLOOD COUNT 6.7 X10'3 (4.5-11.0)
[2019-08-11 11:35] LABS: PARTIAL THROMBOPLASTIN TIME 27 SECONDS (22-32)
[2019-08-11 11:37] LABS: ALANINE AMINOTRANSFERASE 22 U/L (12-78); ALBUMIN 3.3 G/DL (3.4-5.0); ALBUMIN/GLOBULIN RATIO 0.9 (1.1-1.5); ALKALINE PHOSPHATASE 91 IU/L (46-116); ANION GAP 1 (8-16); ASPARTATE AMINO TRANSFERASE 17 U/L (10-37); BLOOD UREA NITROGEN 22 MG/DL (7-18); BUN/CREATININE RATIO 25.9 (6.6-38.0); CALCIUM 8.9 MG/DL (8.5-10.1); CHLORIDE 106 MMOL/L (99-107); CREATININE 0.85 MG/DL (0.40-0.90); GLUCOSE 201 MG/DL (70-104); POTASSIUM 4.6 MMOL/L (3.5-5.1); SODIUM 145 MMOL/L (135-145); TOTAL CARBON DIOXIDE 37.7 MMOL/L (24-32); eGFR 67 ML/MIN
[2019-08-11] MEDS ORDERED: PRED20TA PO (12:11)
[2019-08-11 12:26] VITALS: BP 97/59
== END 2019-08-11 12:26 | disposition home or self-care (01) ==
LOC: ER 10:22
DX: J44.1 Chronic obstructive pulmonary disease with (acute) exacerbation (principal); I48.91 Unspecified atrial fibrillation; I11.0 Hypertensive heart disease with heart failure; I50.9 Heart failure, unspecified; E11.9 Type 2 diabetes mellitus without complications; Z86.73 Personal history of transient ischemic attack (TIA), and cerebral infarction without residual deficits; Z98.890 Other specified postprocedural states; Z87.01 Personal history of pneumonia (recurrent); Z88.0 Allergy status to penicillin; Z88.1 Allergy status to other antibiotic agents; Z88.5 Allergy status to narcotic agent; Z79.899 Other long term (current) drug therapy
CPT/HCPCS: 36415; 71045; 80053; 83880; 85025; 85610; 85730; 93005; 94640; 99285; J7512; 94760

== ENCOUNTER 2019-10-24 11:50 | Emergency (ER) | payer MEDICARE, MEDICAID ==
[~2019-10-24] VITALS: Ht 157.5 cm; Wt 90.9 kg
[2019-10-24 13:01] LABS: BASOPHILS % (AUTO) 0.2 % (0-1); EOSINOPHILS % (AUTO) 0.2 % (0-6); HEMATOCRIT 37.7 % (35.0-45.0); HEMOGLOBIN 11.8 g/dl (12.0-16.0); LYMPHOCYTES # (AUTO) 1.1 X10'3 (1.1-4.8); LYMPHOCYTES % (AUTO) 8.3 % (21-51); MEAN CORPUSCULAR HEMOGLOBIN 26.6 PG (27.0-31.0); MEAN CORPUSCULAR HGB CONC 31.4 g/dL (33.0-36.5); MEAN CORPUSCULAR VOLUME 84.8 FL (78-98); MEAN PLATELET VOLUME 8.1 FL (7.4-10.4); MONOCYTES # (AUTO) 0.8 X10'3 (0-0.9); MONOCYTES % (AUTO) 6.2 % (2-12); NEUTROPHILS # (AUTO) 11.2 X10'3 (1.8-7.7); NEUTROPHILS % (AUTO) 85.1 % (42-75); PLATELET COUNT 279 X10'3 (140-440); RED BLOOD COUNT 4.44 X10'6 (4.20-5.60); RED CELL DISTRIBUTION WIDTH 15.2 % (11.5-14.5); WHITE BLOOD COUNT 13.2 X10'3 (4.5-11.0)
[2019-10-24 13:30] LABS: BILIRUBIN,TOTAL 1.5 MG/DL (0.1-1.0); BLOOD UREA NITROGEN 25 MG/DL (7-18); BUN/CREATININE RATIO 26.9 (6.6-38.0); CHLORIDE 101 MMOL/L (99-107); CREATININE 0.93 MG/DL (0.40-0.90); GLUCOSE 273 MG/DL (70-104); POTASSIUM 4.3 MMOL/L (3.5-5.1); SODIUM 140 MMOL/L (135-145); eGFR 60 ML/MIN
[2019-10-24 13:31] LABS: ALANINE AMINOTRANSFERASE 30 U/L (12-78); ALBUMIN 3.3 G/DL (3.4-5.0); ALBUMIN/GLOBULIN RATIO 0.8 (1.1-1.5); ALKALINE PHOSPHATASE 83 IU/L (46-116); ANION GAP 5 (8-16); ASPARTATE AMINO TRANSFERASE 25 U/L (10-37); TOTAL CARBON DIOXIDE 34.5 MMOL/L (24-32); TOTAL PROTEIN 7.2 G/DL (6.4-8.2)
[2019-10-24] MEDS ORDERED: DOXY-1 PO (13:47)
[2019-10-24 14:06] VITALS: BP 127/49
== END 2019-10-24 14:10 | disposition home or self-care (01) ==
LOC: ER 11:51
DX: J44.1 Chronic obstructive pulmonary disease with (acute) exacerbation (principal); I48.91 Unspecified atrial fibrillation; I50.9 Heart failure, unspecified; I11.9 Hypertensive heart disease without heart failure; E11.9 Type 2 diabetes mellitus without complications; Z98.890 Other specified postprocedural states; Z86.73 Personal history of transient ischemic attack (TIA), and cerebral infarction without residual deficits; Z88.0 Allergy status to penicillin; Z88.5 Allergy status to narcotic agent; Z79.2 Long term (current) use of antibiotics; Z79.899 Other long term (current) drug therapy
CPT/HCPCS: 36415; 71046; 80053; 83605; 85025; 87040; 93005; 99285

== ENCOUNTER 2019-11-21 11:30 | Emergency (ER) | payer MEDICARE, MEDICAID ==
[~2019-11-21] VITALS: Ht 160 cm; Wt 90.9 kg
[2019-11-21 12:10] LABS: BASOPHILS % (AUTO) 0.5 % (0-1); EOSINOPHILS # (AUTO) 0.3 X10'3 (0-0.9); EOSINOPHILS % (AUTO) 3.1 % (0-6); HEMATOCRIT 35.1 % (35.0-45.0); HEMOGLOBIN 11.2 g/dl (12.0-16.0); LYMPHOCYTES # (AUTO) 2.5 X10'3 (1.1-4.8); LYMPHOCYTES % (AUTO) 31.6 % (21-51); MEAN CORPUSCULAR HEMOGLOBIN 27.4 PG (27.0-31.0); MEAN CORPUSCULAR VOLUME 85.6 FL (78-98); MEAN PLATELET VOLUME 8.2 FL (7.4-10.4); MONOCYTES # (AUTO) 0.7 X10'3 (0-0.9); MONOCYTES % (AUTO) 9.2 % (2-12); NEUTROPHILS # (AUTO) 4.5 X10'3 (1.8-7.7); NEUTROPHILS % (AUTO) 55.6 % (42-75); PLATELET COUNT 257 X10'3 (140-440); RED BLOOD COUNT 4.09 X10'6 (4.20-5.60); WHITE BLOOD COUNT 8.1 X10'3 (4.5-11.0)
[2019-11-21 12:16] LABS: ALANINE AMINOTRANSFERASE 23 U/L (12-78); ALBUMIN/GLOBULIN RATIO 0.8 (1.1-1.5); ALKALINE PHOSPHATASE 83 IU/L (46-116); ANION GAP 2 (8-16); ASPARTATE AMINO TRANSFERASE 26 U/L (10-37); BILIRUBIN,TOTAL 0.9 MG/DL (0.1-1.0); BLOOD UREA NITROGEN 22 MG/DL (7-18); CALCIUM 9.4 MG/DL (8.5-10.1); CHLORIDE 101 MMOL/L (99-107); CREATININE 0.88 MG/DL (0.40-0.90); GLUCOSE 237 MG/DL (70-104); POTASSIUM 4.2 MMOL/L (3.5-5.1); SODIUM 137 MMOL/L (135-145); TOTAL CARBON DIOXIDE 34.5 MMOL/L (24-32); TOTAL PROTEIN 6.6 G/DL (6.4-8.2); eGFR 64 ML/MIN
[2019-11-21] MEDS ORDERED: methylPREDNISolone sod succ 125mg/2ml vial IV ONE (13:25)
[2019-11-21] MEDS ORDERED: albuterol 2.5 MG/3 ML nebule CONTNEB PRN (13:25)
[2019-11-21] MEDS ORDERED: furosemide 40mg/4ml inj IV ONE (14:30)
[2019-11-21] MEDS ORDERED: furosemide 10 MG/1 ML 10ml inj IV ONE (14:30)
[2019-11-21] MEDS ORDERED: AZIT250T83 PO (15:56)
[2019-11-21] MEDS ORDERED: PRED20TA PO (15:56)
[2019-11-21 16:15] VITALS: BP 157/109
== END 2019-11-21 16:18 | disposition home or self-care (01) ==
LOC: ER 11:30
DX: J44.1 Chronic obstructive pulmonary disease with (acute) exacerbation (principal); I48.91 Unspecified atrial fibrillation; I50.9 Heart failure, unspecified; I11.0 Hypertensive heart disease with heart failure; E11.9 Type 2 diabetes mellitus without complications; Z86.73 Personal history of transient ischemic attack (TIA), and cerebral infarction without residual deficits; Z98.890 Other specified postprocedural states; Z88.0 Allergy status to penicillin; Z88.5 Allergy status to narcotic agent; Z79.2 Long term (current) use of antibiotics; Z79.899 Other long term (current) drug therapy
CPT/HCPCS: 36415; 71045; 80053; 83880; 84484; 85025; 93005; 94644; 96374; 96375; 99285; J1940; J2930

== ENCOUNTER 2020-02-01 20:38 | Emergency (ER) | payer MEDICARE, MEDICAID ==
[~2020-02-01] VITALS: Ht 157.5 cm; Wt 80.0 kg
[2020-02-01 23:42] LABS: BASOPHILS # (AUTO) 0.2 X10'3 (0-0.2); BASOPHILS % (AUTO) 1.9 % (0-1); EOSINOPHILS # (AUTO) 0.3 X10'3 (0-0.9); EOSINOPHILS % (AUTO) 3.1 % (0-6); HEMATOCRIT 41.7 % (35.0-45.0); HEMOGLOBIN 13.4 g/dl (12.0-16.0); LYMPHOCYTES # (AUTO) 2.5 X10'3 (1.1-4.8); LYMPHOCYTES % (AUTO) 29.6 % (21-51); MEAN CORPUSCULAR HEMOGLOBIN 28.2 PG (27.0-31.0); MEAN CORPUSCULAR HGB CONC 32.1 g/dL (33.0-36.5); MEAN CORPUSCULAR VOLUME 87.9 FL (78-98); MEAN PLATELET VOLUME 8.9 FL (7.4-10.4); MONOCYTES # (AUTO) 0.8 X10'3 (0-0.9); MONOCYTES % (AUTO) 9.5 % (2-12); NEUTROPHILS # (AUTO) 4.8 X10'3 (1.8-7.7); NEUTROPHILS % (AUTO) 55.9 % (42-75); PLATELET COUNT 261 X10'3 (140-440); RED BLOOD COUNT 4.74 X10'6 (4.20-5.60); RED CELL DISTRIBUTION WIDTH 14.6 % (11.5-14.5); WHITE BLOOD COUNT 8.6 X10'3 (4.5-11.0)
[2020-02-01] MEDS ORDERED: furosemide 40mg/4ml inj IV ONE (23:55)
[2020-02-02 00:25] LABS: ALANINE AMINOTRANSFERASE 25 U/L (12-78); ALBUMIN 3.4 G/DL (3.4-5.0); ALBUMIN/GLOBULIN RATIO 0.9 (1.1-1.5); ALKALINE PHOSPHATASE 97 IU/L (46-116); ANION GAP 7 (8-16); ASPARTATE AMINO TRANSFERASE 20 U/L (10-37); BLOOD UREA NITROGEN 21 MG/DL (7-18); BUN/CREATININE RATIO 21.4 (6.6-38.0); CALCIUM 9.1 MG/DL (8.5-10.1); CHLORIDE 100 MMOL/L (99-107); CREATININE 0.98 MG/DL (0.40-0.90); GLUCOSE 268 MG/DL (70-104); POTASSIUM 4.2 MMOL/L (3.5-5.1); SODIUM 140 MMOL/L (135-145); TOTAL CARBON DIOXIDE 33.4 MMOL/L (24-32); TOTAL PROTEIN 7.4 G/DL (6.4-8.2); eGFR 56 ML/MIN
[2020-02-02] MEDS ORDERED: PRED20TA PO (00:57)
[2020-02-02 01:27] VITALS: BP 143/86
== END 2020-02-02 01:28 | disposition home or self-care (01) ==
LOC: ER 20:39
DX: J44.9 Chronic obstructive pulmonary disease, unspecified (principal); R06.02 Shortness of breath; R05 Cough; R07.89 Other chest pain; I48.91 Unspecified atrial fibrillation; I11.0 Hypertensive heart disease with heart failure; I50.9 Heart failure, unspecified; J45.909 Unspecified asthma, uncomplicated; E11.9 Type 2 diabetes mellitus without complications; Z86.73 Personal history of transient ischemic attack (TIA), and cerebral infarction without residual deficits; Z87.01 Personal history of pneumonia (recurrent); Z98.890 Other specified postprocedural states; Z88.0 Allergy status to penicillin; Z88.5 Allergy status to narcotic agent; Z79.2 Long term (current) use of antibiotics; Z79.899 Other long term (current) drug therapy
CPT/HCPCS: 36415; 71045; 80053; 83880; 84484; 85025; 93005; 96374; 99285; J1940

== ENCOUNTER 2020-04-18 19:16 | Emergency (ER) | payer MEDICARE, MEDICAID ==
[~2020-04-18] VITALS: Ht 157.5 cm; Wt 74.2 kg
[2020-04-18 20:07] LABS: BASOPHILS # (AUTO) 0.1 X10'3 (0-0.2); BASOPHILS % (AUTO) 0.8 % (0-1); EOSINOPHILS # (AUTO) 0.4 X10'3 (0-0.9); EOSINOPHILS % (AUTO) 4.2 % (0-6); HEMATOCRIT 41.3 % (35.0-45.0); HEMOGLOBIN 13.6 g/dl (12.0-16.0); LYMPHOCYTES # (AUTO) 1.8 X10'3 (1.1-4.8); LYMPHOCYTES % (AUTO) 19.6 % (21-51); MEAN CORPUSCULAR HEMOGLOBIN 28.7 PG (27.0-31.0); MEAN CORPUSCULAR HGB CONC 32.8 g/dL (33.0-36.5); MEAN CORPUSCULAR VOLUME 87.4 FL (78-98); MEAN PLATELET VOLUME 8.9 FL (7.4-10.4); MONOCYTES # (AUTO) 0.9 X10'3 (0-0.9); MONOCYTES % (AUTO) 9.3 % (2-12); NEUTROPHILS # (AUTO) 6.2 X10'3 (1.8-7.7); NEUTROPHILS % (AUTO) 66.1 % (42-75); PLATELET COUNT 287 X10'3 (140-440); RED BLOOD COUNT 4.73 X10'6 (4.20-5.60); RED CELL DISTRIBUTION WIDTH 14.5 % (11.5-14.5); WHITE BLOOD COUNT 9.4 X10'3 (4.5-11.0)
[2020-04-18 20:16] LABS: CHLORIDE 94 MMOL/L (99-107); POTASSIUM 4.1 MMOL/L (3.5-5.1); SODIUM 138 MMOL/L (135-145)
[2020-04-18 20:17] LABS: ALANINE AMINOTRANSFERASE 20 U/L (12-78); ALBUMIN 3.3 G/DL (3.4-5.0); ALBUMIN/GLOBULIN RATIO 0.8 (1.1-1.5); ALKALINE PHOSPHATASE 106 IU/L (46-116); ANION GAP 6 (8-16); ASPARTATE AMINO TRANSFERASE 16 U/L (10-37); BILIRUBIN,TOTAL 1.1 MG/DL (0.1-1.0); BLOOD UREA NITROGEN 24 MG/DL (7-18); BUN/CREATININE RATIO 20.2 (6.6-38.0); CALCIUM 9.3 MG/DL (8.5-10.1); CREATININE 1.19 MG/DL (0.40-0.90); TOTAL CARBON DIOXIDE 37.9 MMOL/L (24-32); TOTAL PROTEIN 7.6 G/DL (6.4-8.2); eGFR 45 ML/MIN
[2020-04-18 20:20] LABS: GLUCOSE 553 MG/DL (70-104)
[2020-04-18] MEDS ORDERED: methylPREDNISolone sod succ 125mg/2ml vial IV ONE (20:55)
[2020-04-18] MEDS ORDERED: ipratropium/albuterol 3ml nebule NEB ONE (20:55)
[2020-04-18] MEDS ORDERED: insulin regular, human 10 units/0.1 ml syringe SQ ONE (21:00)
[2020-04-18] MEDS ORDERED: PRED20TA PO (21:01)
[2020-04-18 22:23] VITALS: BP 140/110
== END 2020-04-18 22:00 | disposition home or self-care (01) ==
LOC: ER 19:17
DX: J44.1 Chronic obstructive pulmonary disease with (acute) exacerbation (principal); I48.91 Unspecified atrial fibrillation; I50.9 Heart failure, unspecified; I11.0 Hypertensive heart disease with heart failure; E11.9 Type 2 diabetes mellitus without complications; Z86.73 Personal history of transient ischemic attack (TIA), and cerebral infarction without residual deficits; Z98.890 Other specified postprocedural states; Z88.0 Allergy status to penicillin; Z88.5 Allergy status to narcotic agent; Z79.899 Other long term (current) drug therapy; Z79.2 Long term (current) use of antibiotics
CPT/HCPCS: 36415; 71045; 80053; 82948; 83880; 84484; 85025; 93005; 94640; 99285; J1815; 94760

== ENCOUNTER 2020-10-30 22:25 | Emergency (ER) | payer MEDICARE, MEDICAID ==
[~2020-10-30] VITALS: Ht 157.5 cm; Wt 63.5 kg
[~2020-10-30 22:25] MED LIST changes: -ALBU18HF2 INH; +ALBU8.5H8 INH; -AMIO200T61 PO; -AMLO2.5T2 PO; +ASPI81TA53 PO; -ATOR40TA PO; +ATOR40TA72 PO; -AZIT250T PO; -BUDE10.2; +CARV12.545 PO; +DIGO125T PO; -FURO-150 PO; +FURO20TA4 PO; -GLIM4TAB7 PO; +LACT1CAP26 PO; +LINA5TAB4 PO; -LOSA100T57; +LOSA100T57 PO; +METF-438 PO; -METF500T PO; +PANT40TA54 PO; +SERT-433 PO; -SERT25TA PO; -TIOT4MIS2; +TIOT4MIS2 PO; -TIOT4MIS3; +WARF-65 PO
[2020-10-30] MEDS ORDERED: normal saline 1000ml 1,000 ML IV ONE (23:20)
[2020-10-30 23:50] LABS: ALBUMIN 3.2 G/DL (3.4-5.0); ANION GAP 7 (8-16); BLOOD UREA NITROGEN 34 MG/DL (7-18); CALCIUM 8.7 MG/DL (8.5-10.1); CHLORIDE 103 MMOL/L (99-107); CREATININE 1.79 MG/DL (0.40-0.90); GLUCOSE 112 MG/DL (70-104); POTASSIUM 4.2 MMOL/L (3.5-5.1); SODIUM 144 MMOL/L (135-145); TOTAL CARBON DIOXIDE 34.3 MMOL/L (24-32); eGFR 28 ML/MIN
[2020-10-31] MEDS ORDERED: normal saline 1000ml 1,000 ML IV ONE (02:05)
[2020-10-31 02:19] LABS: BASOPHILS % (AUTO) 0.5 % (0-1); EOSINOPHILS # (AUTO) 0.2 X10'3 (0-0.9); HEMATOCRIT 29.5 % (35.0-45.0); HEMOGLOBIN 9.7 g/dl (12.0-16.0); LYMPHOCYTES # (AUTO) 1.8 X10'3 (1.1-4.8); LYMPHOCYTES % (AUTO) 20.9 % (21-51); MEAN CORPUSCULAR HEMOGLOBIN 28.2 PG (27.0-31.0); MEAN CORPUSCULAR HGB CONC 32.7 g/dL (33.0-36.5); MEAN CORPUSCULAR VOLUME 86.2 FL (78-98); MONOCYTES % (AUTO) 11.2 % (2-12); NEUTROPHILS # (AUTO) 5.6 X10'3 (1.8-7.7); NEUTROPHILS % (AUTO) 65.4 % (42-75); PLATELET COUNT 354 X10'3 (140-440); RED BLOOD COUNT 3.42 X10'6 (4.20-5.60); RED CELL DISTRIBUTION WIDTH 16.3 % (11.5-14.5); WHITE BLOOD COUNT 8.6 X10'3 (4.5-11.0)
[2020-10-31 05:23] LABS: ALBUMIN 2.6 G/DL (3.4-5.0); ANION GAP 6 (8-16); BLOOD UREA NITROGEN 33 MG/DL (7-18); BUN/CREATININE RATIO 21.9 (6.6-38.0); CALCIUM 7.7 MG/DL (8.5-10.1); CHLORIDE 107 MMOL/L (99-107); CREATININE 1.51 MG/DL (0.40-0.90); GLUCOSE 74 MG/DL (70-104); POTASSIUM 3.7 MMOL/L (3.5-5.1); SODIUM 145 MMOL/L (135-145); eGFR 34 ML/MIN
[2020-10-31 05:46] VITALS: BP 93/60
--- NOTE | 2020-10-31 05:47 | NUR ---
Pt ambulated with minimal assistance approx 40 ft. in the ER. Pt was on 3L O2 with an O2% of 94 and a heart rate of 88. No c/o of dizziness or weakness.
--- NOTE | 2020-10-31 06:19 | NUR ---
Pt sister Deanne contacted and will give patient a ride home. It will be about an hour before she can come and collect her. Patient will stay in room on 3L O2 until her ride gets here.
--- NOTE | 2020-10-31 09:20 | NUR ---
called catarina gagnon sister to see when she will be here to take pt home. [phone]
--- NOTE | 2020-10-31 09:25 | NUR ---
pts obirajiv catarina just arrived.
== END 2020-10-31 09:26 | disposition home or self-care (01) ==
LOC: ER 22:26
DX: T47.7X1A Poisoning by emetics, accidental (unintentional), initial encounter (principal); T38.3X1A Poisoning by insulin and oral hypoglycemic [antidiabetic] drugs, accidental (unintentional), initial encounter; I95.9 Hypotension, unspecified; N17.9 Acute kidney failure, unspecified; I11.0 Hypertensive heart disease with heart failure; I50.9 Heart failure, unspecified; I48.91 Unspecified atrial fibrillation; J44.9 Chronic obstructive pulmonary disease, unspecified; E11.9 Type 2 diabetes mellitus without complications; Z86.73 Personal history of transient ischemic attack (TIA), and cerebral infarction without residual deficits; Z98.890 Other specified postprocedural states; Z88.0 Allergy status to penicillin; Z88.1 Allergy status to other antibiotic agents; Z79.82 Long term (current) use of aspirin; Z79.899 Other long term (current) drug therapy; Y92.89 Other specified places as the place of occurrence of the external cause
CPT/HCPCS: 36415; 71045; 80048; 80162; 82948; 85025; 85610; 93005; 96360; 96361; 99285; J7030

== ENCOUNTER 2022-01-16 21:21 | Emergency (ER) | payer MEDICARE, MEDICAID ==
[~2022-01-16] VITALS: Ht 157.5 cm; Wt 120.0 kg
[~2022-01-16 21:21] MED LIST changes: +ALBU8.5H17 INH; -ALBU8.5H8 INH
[2022-01-16 23:03] LABS: BASOPHILS # (AUTO) 0.1 X10'3 (0-0.2); BASOPHILS % (AUTO) 0.7 % (0-1); EOSINOPHILS # (AUTO) 0.5 X10'3 (0-0.9); EOSINOPHILS % (AUTO) 4.5 % (0-6); HEMATOCRIT 36.7 % (35.0-45.0); HEMOGLOBIN 12.2 g/dl (12.0-16.0); LYMPHOCYTES # (AUTO) 1.8 X10'3 (1.1-4.8); LYMPHOCYTES % (AUTO) 16.8 % (21-51); MEAN CORPUSCULAR HEMOGLOBIN 27.8 PG (27.0-31.0); MEAN CORPUSCULAR HGB CONC 33.2 g/dL (33.0-36.5); MEAN CORPUSCULAR VOLUME 83.7 FL (78-98); MEAN PLATELET VOLUME 8.1 FL (7.4-10.4); MONOCYTES % (AUTO) 9.1 % (2-12); NEUTROPHILS # (AUTO) 7.4 X10'3 (1.8-7.7); NEUTROPHILS % (AUTO) 68.9 % (42-75); PLATELET COUNT 253 X10'3 (140-440); RED BLOOD COUNT 4.38 X10'6 (4.20-5.60); RED CELL DISTRIBUTION WIDTH 15.4 % (11.5-14.5); WHITE BLOOD COUNT 10.8 X10'3 (4.5-11.0)
[2022-01-16 23:08] LABS: ALANINE AMINOTRANSFERASE 18 U/L (12-78); ALBUMIN 3.6 G/DL (3.4-5.0); ALBUMIN/GLOBULIN RATIO 0.9 (1.1-1.5); ALKALINE PHOSPHATASE 81 IU/L (46-116); ANION GAP 10 (8-16); ASPARTATE AMINO TRANSFERASE 19 U/L (10-37); BLOOD UREA NITROGEN 40 MG/DL (7-18); BUN/CREATININE RATIO 29.6 (6.6-38.0); CALCIUM 9.1 MG/DL (8.5-10.1); CHLORIDE 99 MMOL/L (99-107); CREATININE 1.35 MG/DL (0.40-0.90); GLUCOSE 148 MG/DL (70-104); POTASSIUM 3.7 MMOL/L (3.5-5.1); SODIUM 143 MMOL/L (135-145); TOTAL CARBON DIOXIDE 33.7 MMOL/L (24-32); TOTAL PROTEIN 7.7 G/DL (6.4-8.2); eGFR 39 ML/MIN
[2022-01-17 00:26] VITALS: BP 134/64
== END 2022-01-17 00:33 | disposition home or self-care (01) ==
LOC: ER 21:22
DX: T82.897A Other specified complication of cardiac prosthetic devices, implants and grafts, initial encounter (principal); I11.0 Hypertensive heart disease with heart failure; J44.9 Chronic obstructive pulmonary disease, unspecified; E11.9 Type 2 diabetes mellitus without complications; Z88.0 Allergy status to penicillin; Z88.1 Allergy status to other antibiotic agents; Z88.5 Allergy status to narcotic agent; Z79.899 Other long term (current) drug therapy; Z79.82 Long term (current) use of aspirin; Z79.84 Long term (current) use of oral hypoglycemic drugs; Z79.2 Long term (current) use of antibiotics; Z98.890 Other specified postprocedural states
CPT/HCPCS: 36415; 71045; 80053; 83880; 84484; 85025; 85610; 93005; 99285

== ENCOUNTER 2022-05-18 18:51 | Emergency (ER) | payer MEDICARE, MEDICAID ==
[~2022-05-18] VITALS: Ht 157.5 cm; Wt 68.2 kg
[2022-05-18 20:25] VITALS: BP 113/39
== END 2022-05-18 20:46 | disposition home or self-care (01) ==
LOC: ER 18:51
DX: S01.01XA Laceration without foreign body of scalp, initial encounter (principal); W18.39XA Other fall on same level, initial encounter; Y93.89 Activity, other specified; Y92.89 Other specified places as the place of occurrence of the external cause; Y99.8 Other external cause status; I11.9 Hypertensive heart disease without heart failure; J44.9 Chronic obstructive pulmonary disease, unspecified; E11.9 Type 2 diabetes mellitus without complications; Z88.0 Allergy status to penicillin; Z88.1 Allergy status to other antibiotic agents; Z88.5 Allergy status to narcotic agent; Z79.899 Other long term (current) drug therapy
CPT/HCPCS: 70450; 72125; 99284

== ENCOUNTER 2022-08-24 14:18 | Emergency (ER) | payer MEDICARE, MEDICAID ==
[~2022-08-24] VITALS: Ht 157.5 cm; Wt 70.5 kg
[~2022-08-24 14:18] MED LIST changes: -ALBU8.5H17 INH; +APIX5TAB3 PO; +ASPI-1071 PO; -ASPI81TA53 PO; +BUDE10.7 PO; -CARV12.545 PO; -DIGO125T PO; +DULO30CA52 PO; +FERR325T29 PO; -FURO20TA4 PO; +FURO40TA4 PO; +GLIP5TAB13 PO; +GUAI600T45 PO; -LACT1CAP26 PO; +LEVO-65 PO; -LINA5TAB4 PO; +LISI5TAB22 PO; -LOSA100T57 PO; -METF-438 PO; +METO200T49 PO; +PRED10TA23 PO; -SERT-433 PO; -TIOT4MIS2 PO; -WARF-65 PO
[2022-08-24 15:10] LABS: BASOPHILS % (AUTO) 0.4 % (0-1); EOSINOPHILS # (AUTO) 0.1 X10'3 (0-0.9); EOSINOPHILS % (AUTO) 0.8 % (0-6); HEMATOCRIT 33.9 % (35.0-45.0); HEMOGLOBIN 11.2 g/dl (12.0-16.0); LYMPHOCYTES # (AUTO) 0.7 X10'3 (1.1-4.8); LYMPHOCYTES % (AUTO) 6.8 % (21-51); MEAN CORPUSCULAR HEMOGLOBIN 28.1 PG (27.0-31.0); MEAN CORPUSCULAR HGB CONC 33.1 g/dL (33.0-36.5); MEAN PLATELET VOLUME 7.3 FL (7.4-10.4); MONOCYTES # (AUTO) 0.5 X10'3 (0-0.9); MONOCYTES % (AUTO) 4.7 % (2-12); NEUTROPHILS # (AUTO) 9.2 X10'3 (1.8-7.7); NEUTROPHILS % (AUTO) 87.3 % (42-75); PLATELET COUNT 442 X10'3 (140-440); RED BLOOD COUNT 3.99 X10'6 (4.20-5.60); RED CELL DISTRIBUTION WIDTH 13.6 % (11.5-14.5); WHITE BLOOD COUNT 10.6 X10'3 (4.5-11.0)
[2022-08-24] MEDS ORDERED: normal saline 1000ML IV soln IVB ONE (15:10)
[2022-08-24] MEDS ORDERED: albuterol 2.5 MG/3 ML nebule CONTNEB PRN (15:10)
--- NOTE | 2022-08-24 15:10 | NUR ---
Reported low BPs to MD Mullen. evaluating pt now.
[2022-08-24 15:15] LABS: ALANINE AMINOTRANSFERASE 11 U/L (12-78); ALBUMIN 2.5 G/DL (3.4-5.0); ALBUMIN/GLOBULIN RATIO 0.5 (1.1-1.5); ALKALINE PHOSPHATASE 96 IU/L (46-116); ANION GAP 4 (8-16); ASPARTATE AMINO TRANSFERASE 19 U/L (10-37); BILIRUBIN,TOTAL 0.8 MG/DL (0.1-1.0); BLOOD UREA NITROGEN 34 MG/DL (7-18); BUN/CREATININE RATIO 24.8 (6.6-38.0); CALCIUM 9.4 MG/DL (8.5-10.1); CHLORIDE 95 MMOL/L (99-107); CREATININE 1.37 MG/DL (0.40-0.90); GLUCOSE 199 MG/DL (70-104); POTASSIUM 3.9 MMOL/L (3.5-5.1); SODIUM 133 MMOL/L (135-145); TOTAL CARBON DIOXIDE 33.8 MMOL/L (24-32); eGFR 38 ML/MIN
--- NOTE | 2022-08-24 15:15 | NUR ---
VO from MD Mullen pt to receive 250ml NS IV fluid bolus to pt now.
[2022-08-24 17:03] VITALS: BP 100/48
[2022-08-24] MEDS ORDERED: NEBU-161 INH (17:07)
[2022-08-24] MEDS ORDERED: ALB0.5UD IH (17:07)
== END 2022-08-24 19:36 | disposition home or self-care (01) ==
LOC: ER 14:19
DX: J44.9 Chronic obstructive pulmonary disease, unspecified (principal); I50.22 Chronic systolic (congestive) heart failure; E13.22 Other specified diabetes mellitus with diabetic chronic kidney disease; I13.2 Hypertensive heart and chronic kidney disease with heart failure and with stage 5 chronic kidney disease, or end stage renal disease; N18.6 End stage renal disease; Z88.0 Allergy status to penicillin; Z88.1 Allergy status to other antibiotic agents; Z88.5 Allergy status to narcotic agent; Z79.899 Other long term (current) drug therapy; Z79.82 Long term (current) use of aspirin; Z79.1 Long term (current) use of non-steroidal anti-inflammatories (NSAID); Z79.2 Long term (current) use of antibiotics
CPT/HCPCS: 36415; 71045; 80053; 83880; 84484; 85025; 93005; 94640; 94644; 99285; J7030; 94760

== ENCOUNTER 2022-08-25 14:52 | Inpatient (IN) | payer MEDICAID, MEDICARE ==
[~2022-08-25] VITALS: Ht 157.5 cm; Wt 68.2 kg
[~2022-08-25 14:52] MED LIST changes: +ALB0.5UD IH; +NEBU-161 INH
[2022-08-25 15:48] LABS: BASOPHILS % (AUTO) 0.2 % (0-1); EOSINOPHILS % (AUTO) 0.2 % (0-6); HEMATOCRIT 30.9 % (35.0-45.0); HEMOGLOBIN 10.1 g/dl (12.0-16.0); LYMPHOCYTES # (AUTO) 0.6 X10'3 (1.1-4.8); LYMPHOCYTES % (AUTO) 4.8 % (21-51); MEAN CORPUSCULAR HEMOGLOBIN 27.5 PG (27.0-31.0); MEAN CORPUSCULAR HGB CONC 32.8 g/dL (33.0-36.5); MEAN PLATELET VOLUME 6.7 FL (7.4-10.4); MONOCYTES # (AUTO) 0.7 X10'3 (0-0.9); MONOCYTES % (AUTO) 5.3 % (2-12); NEUTROPHILS # (AUTO) 11.6 X10'3 (1.8-7.7); NEUTROPHILS % (AUTO) 89.5 % (42-75); PLATELET COUNT 476 X10'3 (140-440); RED BLOOD COUNT 3.68 X10'6 (4.20-5.60); RED CELL DISTRIBUTION WIDTH 13.5 % (11.5-14.5)
[2022-08-25] MEDS ORDERED: normal saline 500ml IV soln 500 ML IV ONE ×2 (16:00→17:45)
[2022-08-25 16:05] LABS: ALANINE AMINOTRANSFERASE 10 U/L (12-78); ALBUMIN 2.4 G/DL (3.4-5.0); ALBUMIN/GLOBULIN RATIO 0.5 (1.1-1.5); ALKALINE PHOSPHATASE 82 IU/L (46-116); ANION GAP 7 (8-16); ASPARTATE AMINO TRANSFERASE 14 U/L (10-37); BILIRUBIN,TOTAL 0.5 MG/DL (0.1-1.0); BLOOD UREA NITROGEN 54 MG/DL (7-18); BUN/CREATININE RATIO 23.6 (6.6-38.0); CALCIUM 8.8 MG/DL (8.5-10.1); CHLORIDE 96 MMOL/L (99-107); CREATININE 2.29 MG/DL (0.40-0.90); GLUCOSE 211 MG/DL (70-104); POTASSIUM 3.7 MMOL/L (3.5-5.1); SODIUM 136 MMOL/L (135-145); TOTAL CARBON DIOXIDE 32.6 MMOL/L (24-32); TOTAL PROTEIN 7.3 G/DL (6.4-8.2); eGFR 21 ML/MIN
[2022-08-25 18:03] LABS: CLARITY,URINE CLOUDY (Clear); COLOR,URINE YELLOW (Yellow); GLUCOSE, URINE NEGATIVE (Neg); KETONES,URINE NEGATIVE (Neg); LEUKOCYTE ESTERASE ,URINE NEGATIVE (Neg); NITRITES, URINE NEGATIVE (Neg); OCCULT BLOOD,URINE TRACE-INTACT (Neg); PROTEIN,URINE NEGATIVE (Neg); UROBILINOGEN,URINE 0.2 E.U/dL (0.2-1.0)
[2022-08-25 18:25] LABS: UA COLLECTION TYPE CLN CATCH MIDSTREAM
[2022-08-25 18:36] LABS: SQUAMOUS EPITHELIAL CELL,UR MANY /LPF (FEW)
[2022-08-25 18:37] LABS: BACTERIA,URINE 2+ /HPF (Neg); RBC,URINE 0-2 /HPF (0-2); TRANSITIONAL EPI CELLS,URINE MANY /HPF; WBC,URINE 0-4 /HPF (0-4)
[2022-08-25] MEDS ORDERED: ipratropium/albuterol 3ml nebule NEB ONE (19:25)
[2022-08-25] MEDS ORDERED: potassium Cl 40MEQ/1/2NS 520ml 520 ML IV PRN (19:50)
[2022-08-25] MEDS ORDERED: magnesium 4gm in 100ml NS 100 ML IV PRN (19:50)
[2022-08-25] MEDS ORDERED: potassium Cl 20 mEq SR tablet PO PRN ×2 (19:50)
[2022-08-25] MEDS ORDERED: acetaminophen 325mg tablet PO PRN (19:50)
[2022-08-25] MEDS ORDERED: ondansetron/PF 4mg/2ml inj IV PRN (19:50)
[2022-08-25] MEDS ORDERED: magnesium Cl slow-release 64mg tablet PO PRN (19:50)
[2022-08-25] MEDS: K and/or MAG REPLACEMENT MC SCH (20:00)
[2022-08-25 22:25] VITALS: BP 105/63
[2022-08-26 00:43] VITALS: BP_SYST 100; BP_SYST 111; BP_SYST 98; BP_DIAS 47; BP_DIAS 50; BP_DIAS 79
[2022-08-26 02:44] VITALS: BP 91/54
--- NOTE | 2022-08-26 06:43 | NUR ---
Sent fax to dietary for breakfast request
[2022-08-26 07:00] VITALS: BP 93/60
[2022-08-26 07:21] LABS: BASOPHILS % (AUTO) 0.2 % (0-1); EOSINOPHILS % (AUTO) 0.1 % (0-6); HEMATOCRIT 27.4 % (35.0-45.0); HEMOGLOBIN 8.9 g/dl (12.0-16.0); LYMPHOCYTES # (AUTO) 0.8 X10'3 (1.1-4.8); LYMPHOCYTES % (AUTO) 8.8 % (21-51); MEAN CORPUSCULAR HEMOGLOBIN 27.6 PG (27.0-31.0); MEAN CORPUSCULAR HGB CONC 32.7 g/dL (33.0-36.5); MEAN CORPUSCULAR VOLUME 84.6 FL (78-98); MEAN PLATELET VOLUME 7.1 FL (7.4-10.4); MONOCYTES # (AUTO) 1.3 X10'3 (0-0.9); MONOCYTES % (AUTO) 14.1 % (2-12); NEUTROPHILS # (AUTO) 7.2 X10'3 (1.8-7.7); NEUTROPHILS % (AUTO) 76.8 % (42-75); PLATELET COUNT 458 X10'3 (140-440); RED BLOOD COUNT 3.23 X10'6 (4.20-5.60); RED CELL DISTRIBUTION WIDTH 13.7 % (11.5-14.5); WHITE BLOOD COUNT 9.4 X10'3 (4.5-11.0)
[2022-08-26 07:38] LABS: ALBUMIN 2.2 G/DL (3.4-5.0); ANION GAP 7 (8-16); BLOOD UREA NITROGEN 58 MG/DL (7-18); CALCIUM 8.6 MG/DL (8.5-10.1); CHLORIDE 99 MMOL/L (99-107); CREATININE 2.15 MG/DL (0.40-0.90); GLUCOSE 376 MG/DL (70-104); MAGNESIUM 2.1 MG/DL (1.5-2.4); POTASSIUM 3.9 MMOL/L (3.5-5.1); SODIUM 136 MMOL/L (135-145); TOTAL CARBON DIOXIDE 30.4 MMOL/L (24-32); eGFR 23 ML/MIN
[2022-08-26 08:00] VITALS: BP_SYST 108; BP_SYST 95; BP_DIAS 34; BP_DIAS 53; BP_DIAS 63
[2022-08-26] MEDS: K and/or MAG REPLACEMENT MC SCH ×2 (08:00→20:00)
--- NOTE | 2022-08-26 09:31 | NUR ---
Per EMR pt with T2DM, most recent A1c 9.5% 08/18. Pt seen at bedside by RD 08/19 for written and verbal DM education with RD contact information provided, no further education planned at this time. Previously obtained food preferences will be honored this admit, see below. Will continue to follow. Recommendations: 1) Continue heart healthy CHO controlled diet 2) [place] food preferences: No tilapia, fruit cocktail, bananas, or green beans; likes corn, cooked carrots, peas, rice, eggs, and avocado 3) Routine bowel care 4) Scaled weight this admit; subsequent weekly scaled weights Addendum: 08/26/22 at [address] Amended: Links added.
--- NOTE | 2022-08-26 10:02 | NUR ---
Notified Dr Beckman glucose 376, no glycemic protocol ordered
[2022-08-26] MEDS ORDERED: MESSAGE TO PHARMACY PO ONE (10:15)
[2022-08-26] MEDS ORDERED: glucagon, human recombinant 1mg kit SUBCUT PRN (10:15)
[2022-08-26] MEDS ORDERED: dextrose 50%-water 50ml dispensing syringe IV PRN ×2 (10:15)
[2022-08-26] MEDS ORDERED: DEXTROSE 15 GM of carb/4 tabs (each vial/BOTTLE has 4 tablets) PO PRN ×2 (10:15)
[2022-08-26] MEDS: ipratropium/albuterol 3ml nebule NEB SCH ×4 (11:00→23:00)
[2022-08-26] MEDS ORDERED: ipratropium/albuterol 3ml nebule NEB PRN (11:00)
[2022-08-26 11:06] LABS: % IRON SATURATION 25 % (11-46); IRON 38 UG/DL (49-151); TOTAL IRON BINDING CAPACITY 152 UG/DL (259-388)
[2022-08-26 12:00] VITALS: BP 95/54
[2022-08-26 13:00] VITALS: BP_SYST 108; BP_SYST 95; BP_DIAS 34; BP_DIAS 53; BP_DIAS 63
[2022-08-26] MEDS: insulin Lispro (HumaLOG) vial - multi-dose SQ SCH (13:02)
--- NOTE | 2022-08-26 15:19 | NUR ---
Pt aware to notify RN of stool sample
--- NOTE | 2022-08-26 15:30 | NUR ---
Called sister Deanne with pt permission #[phone] Beckman to see her baseline mentation to see if AMS or WDL. Left vm
--- NOTE | 2022-08-26 16:15 | NUR ---
IS provided with education. Pt MARIA ELENA appropriate
[2022-08-26] MEDS: ferrous sulfate 325mg tablet PO SCH (20:07)
[2022-08-26] MEDS: apixaban 5mg tablet PO SCH (20:07)
[2022-08-26] MEDS: insulin glargine (Lantus) pen - multi-dose SQ SCH (20:38)
[2022-08-27] MEDS: ipratropium/albuterol 3ml nebule NEB SCH ×6 (03:04→23:16)
[2022-08-27 06:36] LABS: BASOPHILS # (AUTO) 0.1 X10'3 (0-0.2); BASOPHILS % (AUTO) 0.6 % (0-1); EOSINOPHILS # (AUTO) 0.3 X10'3 (0-0.9); EOSINOPHILS % (AUTO) 3.1 % (0-6); HEMATOCRIT 27.5 % (35.0-45.0); HEMOGLOBIN 9.2 g/dl (12.0-16.0); LYMPHOCYTES # (AUTO) 1.3 X10'3 (1.1-4.8); LYMPHOCYTES % (AUTO) 12.3 % (21-51); MEAN CORPUSCULAR HGB CONC 33.3 g/dL (33.0-36.5); MEAN CORPUSCULAR VOLUME 83.9 FL (78-98); MEAN PLATELET VOLUME 6.7 FL (7.4-10.4); MONOCYTES # (AUTO) 1.6 X10'3 (0-0.9); MONOCYTES % (AUTO) 14.9 % (2-12); NEUTROPHILS # (AUTO) 7.4 X10'3 (1.8-7.7); NEUTROPHILS % (AUTO) 69.1 % (42-75); PLATELET COUNT 453 X10'3 (140-440); RED BLOOD COUNT 3.28 X10'6 (4.20-5.60); RED CELL DISTRIBUTION WIDTH 14.2 % (11.5-14.5); WHITE BLOOD COUNT 10.7 X10'3 (4.5-11.0)
[2022-08-27 06:41] LABS: ALBUMIN 2.2 G/DL (3.4-5.0); ANION GAP 5 (8-16); BLOOD UREA NITROGEN 47 MG/DL (7-18); BUN/CREATININE RATIO 33.1 (6.6-38.0); CALCIUM 8.9 MG/DL (8.5-10.1); CHLORIDE 105 MMOL/L (99-107); CREATININE 1.42 MG/DL (0.40-0.90); GLUCOSE 152 MG/DL (70-104); MAGNESIUM 1.9 MG/DL (1.5-2.4); POTASSIUM 3.7 MMOL/L (3.5-5.1); SODIUM 141 MMOL/L (135-145); TOTAL CARBON DIOXIDE 30.9 MMOL/L (24-32); eGFR 36 ML/MIN
--- NOTE | 2022-08-27 06:42 | NUR ---
Patient in room PCU 3017. I have received report from wing keene and had the opportunity to ask questions and assume patient care.
[2022-08-27 07:00] VITALS: BP 119/66
[2022-08-27] MEDS: BREZTRI AEROSPHERE PO SCH ×2 (07:57→20:00)
[2022-08-27 08:00] VITALS: BP_SYST 125; BP_SYST 134; BP_SYST 150; BP_DIAS 61; BP_DIAS 67
[2022-08-27] MEDS: K and/or MAG REPLACEMENT MC SCH ×2 (08:00→21:01)
[2022-08-27] MEDS: duloxetine 30mg CAPSULE.DR PO SCH (08:10)
[2022-08-27] MEDS: pantoprazole 40mg Tablet.DR PO SCH (08:10)
[2022-08-27] MEDS: apixaban 5mg tablet PO SCH ×2 (08:10→21:20)
[2022-08-27] MEDS: aspirin 81mg, enteric-coated 1 TAB TABLET.DR PO SCH (08:10)
[2022-08-27] MEDS: atorvastatin 20mg tablet PO SCH (08:11)
[2022-08-27] MEDS: ferrous sulfate 325mg tablet PO SCH ×2 (08:12→21:20)
[2022-08-27] MEDS: insulin Lispro (HumaLOG) vial - multi-dose SQ SCH ×2 (09:32→14:06)
[2022-08-27 12:00] VITALS: BP 126/63
[2022-08-27 16:00] VITALS: BP 150/67
--- NOTE | 2022-08-27 16:50 | NUR ---
SUPERVISOR URANIUM PROCESSING documentation: I have reviewed and agree with all interventions, assessments performed and documented by EDDIE KEENAN II.
[2022-08-27 18:00] VITALS: BP 119/66
--- NOTE | 2022-08-27 18:26 | NUR ---
Problems reprioritized. Patient report given, questions answered & plan of care reviewed with Genoveva WATERMAN.
[2022-08-27 20:00] VITALS: BP 125/61
[2022-08-27] MEDS: insulin glargine (Lantus) pen - multi-dose SQ SCH (21:18)
[2022-08-28] MEDS: ipratropium/albuterol 3ml nebule NEB SCH ×6 (03:22→22:56)
--- NOTE | 2022-08-28 06:20 | NUR ---
Patient in room PCU 3017. I have received report from Genoveva WATERMAN and had the opportunity to ask questions and assume patient care.
[2022-08-28 06:50] VITALS: BP 119/46
[2022-08-28 07:04] LABS: BASOPHILS % (AUTO) 0.4 % (0-1); EOSINOPHILS # (AUTO) 0.7 X10'3 (0-0.9); EOSINOPHILS % (AUTO) 7.2 % (0-6); HEMATOCRIT 28.6 % (35.0-45.0); HEMOGLOBIN 9.4 g/dl (12.0-16.0); LYMPHOCYTES # (AUTO) 1.3 X10'3 (1.1-4.8); LYMPHOCYTES % (AUTO) 12.8 % (21-51); MEAN CORPUSCULAR HEMOGLOBIN 27.7 PG (27.0-31.0); MEAN CORPUSCULAR HGB CONC 32.9 g/dL (33.0-36.5); MEAN CORPUSCULAR VOLUME 84.2 FL (78-98); MEAN PLATELET VOLUME 6.6 FL (7.4-10.4); MONOCYTES # (AUTO) 1.4 X10'3 (0-0.9); MONOCYTES % (AUTO) 14.5 % (2-12); NEUTROPHILS # (AUTO) 6.4 X10'3 (1.8-7.7); NEUTROPHILS % (AUTO) 65.1 % (42-75); PLATELET COUNT 441 X10'3 (140-440); RED CELL DISTRIBUTION WIDTH 13.9 % (11.5-14.5); WHITE BLOOD COUNT 9.8 X10'3 (4.5-11.0)
[2022-08-28 07:14] LABS: ALBUMIN 2.3 G/DL (3.4-5.0); ANION GAP 3 (8-16); BLOOD UREA NITROGEN 32 MG/DL (7-18); BUN/CREATININE RATIO 24.8 (6.6-38.0); CALCIUM 8.9 MG/DL (8.5-10.1); CHLORIDE 103 MMOL/L (99-107); CREATININE 1.29 MG/DL (0.40-0.90); GLUCOSE 197 MG/DL (70-104); MAGNESIUM 1.9 MG/DL (1.5-2.4); POTASSIUM 3.9 MMOL/L (3.5-5.1); SODIUM 139 MMOL/L (135-145); eGFR 41 ML/MIN
[2022-08-28 08:00] VITALS: BP_SYST 108; BP_SYST 152; BP_SYST 153; BP_DIAS 66; BP_DIAS 67; BP_DIAS 73
[2022-08-28] MEDS: K and/or MAG REPLACEMENT MC SCH ×2 (08:00→18:35)
[2022-08-28] MEDS: apixaban 5mg tablet PO SCH ×2 (08:46→19:24)
[2022-08-28] MEDS: aspirin 81mg, enteric-coated 1 TAB TABLET.DR PO SCH (08:47)
[2022-08-28] MEDS: ferrous sulfate 325mg tablet PO SCH ×2 (08:47→19:24)
[2022-08-28] MEDS: pantoprazole 40mg Tablet.DR PO SCH (08:47)
[2022-08-28] MEDS: atorvastatin 20mg tablet PO SCH (08:47)
[2022-08-28] MEDS: duloxetine 30mg CAPSULE.DR PO SCH (08:47)
[2022-08-28] MEDS: insulin Lispro (HumaLOG) vial - multi-dose SQ SCH (08:50)
[2022-08-28] MEDS ORDERED: metoprolol tartrate 12.5mg (1/2 tablet) PO ONE (09:55)
[2022-08-28] MEDS: lisinopril 2.5mg tablet PO SCH (10:58)
[2022-08-28 11:00] VITALS: BP 153/66
--- NOTE | 2022-08-28 11:48 | NUR ---
HVAC DESIGNER documentation: I have reviewed and agree with all interventions, assessments performed and documented by Chinmay KEENAN II, i have changed what i don't agree on and have documented that within the chart .
--- NOTE | 2022-08-28 13:43 | NUR ---
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 Pt w/ normal strength, no edema/wounds, and pending scaled wt this admit w/ prior recent 08/17' admit scaled wt consistent w/ prior wt hx in EMR. Pt PO 100% initial meals decreasing to 0% yesterday though also does not eat breakfast or lunch at baseline per pt report recent admit. Pt lacks minimum malnutrition criteria at this time. Will monitor for further malnutrition criteria this admit. Addendum: 08/28/22 at [address] Amended: Links added.
--- NOTE | 2022-08-28 13:51 | NUR ---
Page Sent PAGER ID: [phone] MESSAGE: [phone] fili Azevedo, pt current bp was 111/43, HR 120. her bp has come down but heart rate is still sitting high. allen
--- NOTE | 2022-08-28 14:06 | NUR ---
pt was only getting one unit of insulin for nutritional coverage she only ate about 12 carbs and had a bs of 111. asked pt if she wanted the one unit or if she wanted to reevaluate at dinner. she said lets see what it is at dinner
[2022-08-28] MEDS: amiodarone 200mg tablet PO SCH ×2 (14:35→19:24)
[2022-08-28 15:00] VITALS: BP 118/56
--- NOTE | 2022-08-28 17:44 | NUR ---
Patients blood glucose at 1700 was 165.
--- NOTE | 2022-08-28 18:25 | NUR ---
Problems reprioritized. Patient report given, questions answered & plan of care reviewed with Genoveva WATERMAN.
[2022-08-28 20:00] VITALS: BP 118/53
[2022-08-28] MEDS: BREZTRI AEROSPHERE PO SCH ×2 (20:00→22:37)
[2022-08-28] MEDS: insulin glargine (Lantus) pen - multi-dose SQ SCH (21:35)
[2022-08-29] MEDS: ipratropium/albuterol 3ml nebule NEB SCH ×3 (02:52→11:24)
[2022-08-29 06:00] VITALS: BP 115/53
--- NOTE | 2022-08-29 06:43 | NUR ---
Patient in room PCU 3017. I have received report from Genoveva WATERMAN and had the opportunity to ask questions and assume patient care.
[2022-08-29 06:50] LABS: BASOPHILS # (AUTO) 0.1 X10'3 (0-0.2); BASOPHILS % (AUTO) 0.7 % (0-1); EOSINOPHILS # (AUTO) 0.7 X10'3 (0-0.9); EOSINOPHILS % (AUTO) 7.2 % (0-6); HEMATOCRIT 28.3 % (35.0-45.0); HEMOGLOBIN 9.1 g/dl (12.0-16.0); LYMPHOCYTES # (AUTO) 1.2 X10'3 (1.1-4.8); MEAN CORPUSCULAR HEMOGLOBIN 27.4 PG (27.0-31.0); MEAN CORPUSCULAR HGB CONC 32.3 g/dL (33.0-36.5); MEAN CORPUSCULAR VOLUME 84.9 FL (78-98); MEAN PLATELET VOLUME 7.2 FL (7.4-10.4); MONOCYTES # (AUTO) 1.3 X10'3 (0-0.9); NEUTROPHILS # (AUTO) 6.8 X10'3 (1.8-7.7); NEUTROPHILS % (AUTO) 67.1 % (42-75); PLATELET COUNT 403 X10'3 (140-440); RED BLOOD COUNT 3.33 X10'6 (4.20-5.60); WHITE BLOOD COUNT 10.1 X10'3 (4.5-11.0)
[2022-08-29 07:02] LABS: ALBUMIN 2.2 G/DL (3.4-5.0); ANION GAP 2 (8-16); BLOOD UREA NITROGEN 27 MG/DL (7-18); CALCIUM 9.3 MG/DL (8.5-10.1); CHLORIDE 102 MMOL/L (99-107); CREATININE 1.35 MG/DL (0.40-0.90); GLUCOSE 173 MG/DL (70-104); SODIUM 138 MMOL/L (135-145); TOTAL CARBON DIOXIDE 33.8 MMOL/L (24-32); eGFR 39 ML/MIN
[2022-08-29] MEDS: apixaban 5mg tablet PO SCH (07:51)
[2022-08-29] MEDS: ferrous sulfate 325mg tablet PO SCH (07:51)
[2022-08-29] MEDS: duloxetine 30mg CAPSULE.DR PO SCH (07:51)
[2022-08-29] MEDS: pantoprazole 40mg Tablet.DR PO SCH (07:51)
[2022-08-29] MEDS: atorvastatin 20mg tablet PO SCH (07:52)
[2022-08-29] MEDS: amiodarone 200mg tablet PO SCH (07:52)
[2022-08-29] MEDS: aspirin 81mg, enteric-coated 1 TAB TABLET.DR PO SCH (07:52)
[2022-08-29] MEDS: lisinopril 2.5mg tablet PO SCH (07:53)
[2022-08-29] MEDS: K and/or MAG REPLACEMENT MC SCH (08:00)
[2022-08-29] MEDS: BREZTRI AEROSPHERE PO SCH (08:00)
[2022-08-29] MEDS: insulin Lispro (HumaLOG) vial - multi-dose SQ SCH (09:13)
[2022-08-29] MEDS ORDERED: LISI2.5T14 PO (09:37)
[2022-08-29] MEDS ORDERED: METO200T49 PO (09:37)
[2022-08-29] MEDS ORDERED: AMIO200T67 PO ×2 (09:37→12:51)
--- NOTE | 2022-08-29 09:52 | NUR ---
Per Dr Gross. Patient is good for d/c. Patient does not need orthostatics for d/c.
[2022-08-29 11:23] VITALS: BP 99/42
--- NOTE | 2022-08-29 11:25 | NUR ---
HOTEL SUPPLIES SALESPERSON documentation: I have reviewed and agree with all interventions, assessments performed and documented by Chinmay KEENAN II .
--- NOTE | 2022-08-29 12:05 | NUR ---
Page Sent PAGER ID: [phone] MESSAGE: [phone] fili de la rosa, pt meds did not escript to the pharmacy. can you please check on this I am getting ready to dc the pt. allen
--- NOTE | 2022-08-29 13:02 | NUR ---
Patient stable for discharge. IV d/c'd. All discharge information went over and signed by patient. No medications in pharmacy. All belongings taken. Medications were called in by Dr Gross. Patient was wheeled down to the lobby by aide and left in a private vehicle with family.
== END 2022-08-29 12:55 | disposition home health service (06) | DRG 204 ==
LOC: ER 14:52 → ED HOLD 19:55 → PCU 3S 22:00
PROVIDERS: ADMIT Internal Medicine; ATTEND Family Medicine
DX: I95.1 Orthostatic hypotension (principal); J96.20 Acute and chronic respiratory failure, unspecified whether with hypoxia or hypercapnia; N17.9 Acute kidney failure, unspecified; S06.2XAA Diffuse traumatic brain injury with loss of consciousness status unknown, initial encounter; E86.9 Volume depletion, unspecified; I13.0 Hypertensive heart and chronic kidney disease with heart failure and stage 1 through stage 4 chronic kidney disease, or unspecified chronic kidney disease; I50.22 Chronic systolic (congestive) heart failure; I48.20 Chronic atrial fibrillation, unspecified; D64.9 Anemia, unspecified; E11.22 Type 2 diabetes mellitus with diabetic chronic kidney disease; E78.5 Hyperlipidemia, unspecified; W10.1XXA Fall (on)(from) sidewalk curb, initial encounter; Z60.2 Problems related to living alone; W22.09XA Striking against other stationary object, initial encounter; N18.30 Chronic kidney disease, stage 3 unspecified; J44.9 Chronic obstructive pulmonary disease, unspecified; Z79.01 Long term (current) use of anticoagulants; Z79.84 Long term (current) use of oral hypoglycemic drugs; Z79.899 Other long term (current) drug therapy; Z86.73 Personal history of transient ischemic attack (TIA), and cerebral infarction without residual deficits; Z88.0 Allergy status to penicillin; Z95.0 Presence of cardiac pacemaker; Y92.89 Other specified places as the place of occurrence of the external cause; Z88.5 Allergy status to narcotic agent; Z99.81 Dependence on supplemental oxygen; Z79.82 Long term (current) use of aspirin
CPT/HCPCS: 36415; 70450; 71045; 80048; 80053; 81001; 82948; 83540; 83550; 83605; 83735; 84145; 85025; 87040; 87081; 94640; 94760; 97116; 97161; 97530; 99285; A6250; G0378; J1815; J7040

== ENCOUNTER 2023-12-05 18:54 | Emergency (ER) | payer MEDICARE, MEDICAID ==
[~2023-12-05] VITALS: Ht 157.5 cm; Wt 70.0 kg
[~2023-12-05 18:54] MED LIST changes: -ALB0.5UD IH; +AMIO200T67 PO; -ASPI-1071 PO; -FURO40TA4 PO; -GLIP5TAB13 PO; -GUAI600T45 PO; -LEVO-65 PO; -LISI5TAB22 PO; +METO200T37 PO; -METO200T49 PO; -PRED10TA23 PO
[2023-12-05 19:01] VITALS: TEMP 98.1
[2023-12-05 19:50] VITALS: BP 138/75; PULSE 83; RESP 14; O2SAT 99
== END 2023-12-05 20:13 | disposition home or self-care (01) ==
LOC: ER 18:55
DX: S00.81XA Abrasion of other part of head, initial encounter (principal); I13.0 Hypertensive heart and chronic kidney disease with heart failure and stage 1 through stage 4 chronic kidney disease, or unspecified chronic kidney disease; E11.22 Type 2 diabetes mellitus with diabetic chronic kidney disease; N18.9 Chronic kidney disease, unspecified; I50.9 Heart failure, unspecified; I48.91 Unspecified atrial fibrillation; J45.909 Unspecified asthma, uncomplicated; J44.9 Chronic obstructive pulmonary disease, unspecified; Z95.0 Presence of cardiac pacemaker; Z88.1 Allergy status to other antibiotic agents; Z86.73 Personal history of transient ischemic attack (TIA), and cerebral infarction without residual deficits; Z88.0 Allergy status to penicillin; Z88.8 Allergy status to other drugs, medicaments and biological substances; Z79.899 Other long term (current) drug therapy; W18.30XA Fall on same level, unspecified, initial encounter; Y93.89 Activity, other specified; Y92.89 Other specified places as the place of occurrence of the external cause; Y99.8 Other external cause status
CPT/HCPCS: 99284

== ENCOUNTER 2024-08-09 17:12 | Emergency (ER) | payer MEDICARE, MEDICAID ==
[~2024-08-09] VITALS: Ht 157.5 cm; Wt 65.9 kg
[~2024-08-09 17:12] MED LIST changes: +FURO40TA4 PO; +GLIM1TAB57 PO; +POTA-207 PO
[2024-08-09 19:09] LABS: BASOPHILS # (AUTO) 0.1 X10'3 (0-0.2); BASOPHILS % (AUTO) 0.5 % (0-1); EOSINOPHILS # (AUTO) 0.1 X10'3 (0-0.9); EOSINOPHILS % (AUTO) 0.5 % (0-6); HEMATOCRIT 33.2 % (35.0-45.0); HEMOGLOBIN 10.9 g/dl (12.0-16.0); LYMPHOCYTES # (AUTO) 1.2 X10'3 (1.1-4.8); LYMPHOCYTES % (AUTO) 10.5 % (21-51); MEAN CORPUSCULAR HEMOGLOBIN 27.3 PG (27.0-31.0); MEAN CORPUSCULAR HGB CONC 32.8 g/dL (33.0-36.5); MEAN CORPUSCULAR VOLUME 83.2 FL (78-98); MEAN PLATELET VOLUME 7.6 FL (7.4-10.4); MONOCYTES # (AUTO) 1.1 X10'3 (0-0.9); MONOCYTES % (AUTO) 9.7 % (2-12); NEUTROPHILS # (AUTO) 9.1 X10'3 (1.8-7.7); NEUTROPHILS % (AUTO) 78.8 % (42-75); PLATELET COUNT 313 X10'3 (140-440); RED BLOOD COUNT 3.99 X10'6 (4.20-5.60); WHITE BLOOD COUNT 11.5 X10'3 (4.5-11.0)
[2024-08-09] MEDS: acetaminophen 325mg tablet PO ONE (19:10)
[2024-08-09] MEDS: traMADol 50MG tablet PO ONE (19:10)
[2024-08-09 19:19] LABS: ALBUMIN 3.5 G/DL (3.4-5.0); ANION GAP 9 (8-16); BLOOD UREA NITROGEN 73 MG/DL (7-18); BUN/CREATININE RATIO 26.5 (10.0-20.0); CALCIUM 9.2 MG/DL (8.5-10.1); CHLORIDE 96 MMOL/L (99-107); CREATININE 2.75 MG/DL (0.40-0.90); GLUCOSE 137 MG/DL (70-104); POTASSIUM 4.2 MMOL/L (3.5-5.1); SODIUM 137 MMOL/L (135-145); eCRCL 14 ML/MIN; eGFR 17 ML/MIN
[2024-08-09] MEDS: normal saline 1000ML IV soln IVB ONE (20:02)
[2024-08-09] MEDS ORDERED: TRAM50TA2 PO (21:38)
[2024-08-09 22:08] VITALS: BP 115/65; PULSE 72; RESP 17; TEMP 98; O2SAT 95
== END 2024-08-09 22:20 | disposition home or self-care (01) ==
LOC: ER 17:13
DX: S32.2XXA Fracture of coccyx, initial encounter for closed fracture (principal); E86.0 Dehydration; I13.0 Hypertensive heart and chronic kidney disease with heart failure and stage 1 through stage 4 chronic kidney disease, or unspecified chronic kidney disease; E11.22 Type 2 diabetes mellitus with diabetic chronic kidney disease; I50.9 Heart failure, unspecified; N18.9 Chronic kidney disease, unspecified; I48.91 Unspecified atrial fibrillation; J45.909 Unspecified asthma, uncomplicated; J44.9 Chronic obstructive pulmonary disease, unspecified; Z88.0 Allergy status to penicillin; Z88.5 Allergy status to narcotic agent; Z86.73 Personal history of transient ischemic attack (TIA), and cerebral infarction without residual deficits; Z79.01 Long term (current) use of anticoagulants; Z95.0 Presence of cardiac pacemaker; Z79.899 Other long term (current) drug therapy; Z98.890 Other specified postprocedural states; W18.39XA Other fall on same level, initial encounter; Y93.89 Activity, other specified; Y92.89 Other specified places as the place of occurrence of the external cause; Y99.8 Other external cause status
CPT/HCPCS: 36415; 70450; 71045; 72220; 80048; 84145; 85025; 96360; 99284; A4615; J7030

== ENCOUNTER 2024-10-15 08:44 | Inpatient (IN) | payer MEDICARE, MEDICAID ==
[~2024-10-15] VITALS: Ht 157.5 cm; Wt 72.7 kg
--- NOTE | 2024-10-15 09:24 | RADIOLOGY REPORT ---
CHEST RADIOGRAPH Indication: CP Technique: Single frontal view of the chest was obtained COMPARISON: DI CHEST,SINGLE VIEW on DOS: 08/09/24, DI CHEST,SINGLE VIEW on DOS: 02/03/24, DI CHEST,SING LE VIEW on DOS: 12/25/23, DI CHEST,SINGLE VIEW on DOS: 11/22/23, DI CHEST,SINGLE VIEW on DOS: 09/08/23 FINDINGS: Lines and Tubes: Left chest AICD Lungs: Clear Pleura: No effusion. No pneumothorax. Cardiomediastinal contours: Unremarkable Bones: Unremarkable IMPRESSION: No acute disease.
[2024-10-15 10:19] LABS: BASOPHILS # (AUTO) 0.1 X10'3 (0-0.2); BASOPHILS % (AUTO) 1.1 % (0-1); EOSINOPHILS # (AUTO) 0.1 X10'3 (0-0.9); EOSINOPHILS % (AUTO) 1.2 % (0-6); HEMATOCRIT 30.6 % (35.0-45.0); HEMOGLOBIN 9.9 g/dl (12.0-16.0); LYMPHOCYTES # (AUTO) 1.4 X10'3 (1.1-4.8); LYMPHOCYTES % (AUTO) 16.8 % (21-51); MEAN CORPUSCULAR HEMOGLOBIN 27.6 PG (27.0-31.0); MEAN CORPUSCULAR HGB CONC 32.4 g/dL (33.0-36.5); MEAN CORPUSCULAR VOLUME 85.2 FL (78-98); MEAN PLATELET VOLUME 7.8 FL (7.4-10.4); MONOCYTES # (AUTO) 0.9 X10'3 (0-0.9); MONOCYTES % (AUTO) 11.2 % (2-12); NEUTROPHILS # (AUTO) 5.8 X10'3 (1.8-7.7); NEUTROPHILS % (AUTO) 69.7 % (42-75); PLATELET COUNT 283 X10'3 (140-440); RED BLOOD COUNT 3.59 X10'6 (4.20-5.60); RED CELL DISTRIBUTION WIDTH 15.5 % (11.5-14.5); WHITE BLOOD COUNT 8.3 X10'3 (4.5-11.0)
[2024-10-15 10:22] LABS: ALANINE AMINOTRANSFERASE 40 U/L (12-78); ALBUMIN/GLOBULIN RATIO 0.8 (1.1-1.5); ALKALINE PHOSPHATASE 133 IU/L (46-116); ANION GAP 6 (8-16); ASPARTATE AMINO TRANSFERASE 34 U/L (10-37); BILIRUBIN,TOTAL 0.6 MG/DL (0.1-1.0); BLOOD UREA NITROGEN 48 MG/DL (7-18); BUN/CREATININE RATIO 28.7 (10.0-20.0); CALCIUM 8.3 MG/DL (8.5-10.1); CHLORIDE 105 MMOL/L (99-107); CREATININE 1.67 MG/DL (0.40-0.90); GLUCOSE 136 MG/DL (70-104); POTASSIUM 4.5 MMOL/L (3.5-5.1); SODIUM 141 MMOL/L (135-145); TOTAL CARBON DIOXIDE 29.7 MMOL/L (24-32); TOTAL PROTEIN 6.7 G/DL (6.4-8.2); eCRCL 23 ML/MIN; eGFR 30 ML/MIN
[2024-10-15 10:28] LABS: PRO BRAIN NATRIURETIC PEPTIDE 11550 PG/ML (0-125)
--- NOTE | 2024-10-15 11:21 | ELECTROCARDIOGRAPH REPORT ---
[facility] Heart Test Date: 2024-10-15 Test Time: 08:51:37 Pat Name: JOE BRIGGS Department: EMERGENCY ROOM Room: Gender: F Cable Engineer: : [id number] Requested By: TEJAS LR Order Number: [id number] Reading MD: Dr. Tejas Lr Measurements Intervals [place] Rate: 76 P: 0 [place]: 52 QRS: 7 QRSD: 96 T: 80 QT: 377 QTc: 424 Interpretive Statements Atrial-paced complexes Anteroseptal infarct, age indeterminate Minimal ST elevation, inferior leads Flutter Electronically Signed On 10-15-2024 12:26:[address] Tejas Lr Please click the below link to view image of tracing.
--- NOTE | 2024-10-15 12:06 | Physician Documentation ---
History of Present Illness ~ Chief Complaint: Shortness of Breath Stated Complaint: SOB Time Seen by MD: 10:26 OK to notify your PCP?: Yes Primary Medical Doctor: [facility] Source: patient, RN/, RN notes reviewed, old records Mode of Arrival: Ambulatory Exam Limitations: no limitations HPI 74 year old female presents to the emergency department for complaints of shortness of breath. She states that she is having trouble breathing in addition to a non productive cough. She states that she has COPD and has experienced this before and states she is just having a flare up. She states that she tried nebulizers and inhalers at home. She states that her shortness of breath that worsens at night and she states she is unable to sleep flat. She is on home oxygen at 3L. Additionally she complains of swelling in her legs and states that she has a cut that is seeping fluid. She states that she is takingher lasix. She denies any chest pain. Of note, she was last admitted on 12/25/2023 for respiratory exacerbation. Her last ejection fraction was noted to be 40-45% in August of 2023. Patient denies any other associated symptoms at this time. Patient denies any other alleviating or exacerbating factors. Medication Reconciliation Allergies: Coded Allergies: Penicillins (Verified Allergy, Severe, ANAPHYLAXIS, 12/25/23) ampicillin (Verified Allergy, Severe, ANAPHYLAXIS, 12/25/23) codeine (Verified Allergy, Unknown, 12/25/23) Scheduled Amiodarone Hcl (Cordarone), 1 TAB PO BID, (Reported) Apixaban (Eliquis), 1 TAB PO BID, (Reported) Atorvastatin Calcium (Atorvastatin Calcium), 1 TAB PO DAILY, (Reported) Budesonide/Glycopyr/Formoterol (Breztri Aerosphere Inhaler), 2 PUFFS PO BID, (Reported) Ferrous Sulfate (Ferrous Sulfate), 1 TAB PO BID, (Reported) Furosemide* (Lasix*), 1 TAB PO BID, (Reported) Glipizide (Glipizide ER), 1 TAB PO DAILY, (Reported) Metoprolol Succinate (Metoprolol Succinate), 1 TAB PO DAILY, (Reported) Pantoprazole Sodium (Pantoprazole Sodium), 1 TAB PO DAILY, (Reported) Trazodone HCl (Trazodone HCl), 1 TAB PO HS, (Reported) Scheduled PRN ONDANSETRON ODT 4mg tablet (Ondansetron Odt), 1 TAB PO Q6H PRN PRN for nausea/vomiting, (Reported) Discontinued Medications Amiodarone HCl (Amiodarone HCl), 1 TAB PO BID Discontinued Reason: patient no longer taking Apixaban (Eliquis), 2.5 MG PO BID Discontinued Reason: patient no longer taking Duloxetine HCl (Duloxetine HCl), 1 CAP PO DAILY, (Reported) Discontinued Reason: patient no longer taking Furosemide 40 MG (Lasix), 1 TAB PO DAILY Discontinued Reason: patient no longer taking Glimepiride* (Amaryl*), 2 MG PO DAILY, (Reported) Discontinued Reason: patient no longer taking Metoprolol Succinate (Metoprolol Succinate), 0.5 TAB PO DAILY Discontinued Reason: patient no longer taking Nebulizer/Compressor (Comp-Air Nebulizer System), EACH INH Q4H PRN for SOB or wheezing, (DME) Discontinued Reason: patient no longer taking Potassium Chloride* (K-Dur*), 1 TAB PO DAILY Discontinued Reason: patient no longer taking Past Medical History Past Medical History: CVA/TIA/Stroke, Atrial Fibrillation, Coronary Artery Disease, Congestive Heart Failure, Hypertension, Myocardial Infarction, Asthma, COPD, Pneumonia, Chronic Kidney Disease, Diabetes Past Surgical History: orthopedic surgeries, pacemaker Smoking Status: Former smoker Alcohol Use: None Drug Use: none Lives In: Home Review of Systems All Other Systems at this time: Reviewed and Negative ROS As stated above in the HPI, otherwise all systems are reviewed and negative. Physical Exam Vital Signs: RN Vital Signs have been reviewed: Yes, Temperature: 97.9, Source: Temporal, Heart Rate: 71, Respiratory Rate: 17, BP: 138/92, Pulse Oximetry: 100, Weight: 72.730 Oxygen Flow Rate: 4.0 Pulse Oximetry Reflects: adequate oxygenation Physical Exam General: The patient is well developed, well nourished, nontoxic appearing and is in no acute distress. Skin: [place], warm and dry with no rashes. HEENT: Head was normocephalic and atraumatic. Eyes - pupils equal, round, reactive to light and accommodation. Extraocular movements were intact. Conjunctivae were nonicteric. Ears - bilateral tympanic membranes were normal. The mouth and oropharynx were clear with moist mucous membranes. There were no pharyngeal exudates or erythema. Neck: Supple and nontender. There was no jugular venous distention, lymph adenopathy, thyromegaly or masses. Chest: Crackles that are 2/[address] in her lungs. No accessory muscle use. No dullness to percussion. Heart: Rate regular and rhythmic. S1, S2. No murmurs. Palpation of the chest wall was normal. No rubs or thrills. Abdomen: Soft, nontender and nondistended. Positive bowel sounds. No guarding or rebound. No hepatosplenomegaly or palpable masses. Extremities: No cyanosis, clubbing or edema. The patient moves all extremities. Pulses were equal and symmetric. Neurologic: Cranial nerves II-XII were intact. Sensation was intact to light touch throughout. Motor strength was 5/5 in all four extremities. Deep tendon reflexes were intact in both upper and lower extremities. Progress Progress Note 1249: The case was discussed with Dr. Castano who was informed on the patients case and kindly agreed to admit them to the hospital. Results/Orders Results/Orders Orders - SANJIV CRAMER MD Chest,Single View (10/15/24 08:54) Monitor (10/15/24 08:54) Saline Lock (10/15/24 08:54) Oxygen (10/15/24 08:54) Electrocardiogram (10/15/24 08:54) Svn Treatment (10/15/24 12:02) Culture Blood (10/15/24 12:02) Page Hospitalist (10/15/24 12:05) Fill Out Med Reconciliation (10/15/24 12:05) Completed Orders - SANJIV CRAMER MD Chest,Single View (10/15/24 08:54) Cbc/Diff (10/15/24 08:54) PBNP (10/15/24 08:54) Electrocardiogram (10/15/24 08:54) CMP (10/15/24 08:54) Hs Troponin I W Calculations (10/15/24 08:54) Hs Troponin I W Calculations (10/15/24 10:54) Hs Troponin I W Calculations (10/15/24 11:54) Methylprednisolone Sod Succ (Solumedrol (10/15/24 12:05) PTT (10/15/24 12:02) Pt Inr (10/15/24 12:02) Ipratropium/Albuterol Nebule (Ipratrop/A (10/15/24 12:05) Procalcitonin (10/15/24 12:02) Ceftriaxone 2gm/D5w 50ml Bag (Rocephin 2 (10/15/24 12:05) Azithromycin/Ns 500mg/250ml (Zithromax/N (10/15/24 12:05) Furosemide Inj (Lasix Inj) (10/15/24 12:05) Lacticsepsis (10/15/24 12:02) Vital Signs 10/15/24 10/15/24 10/15/24 10/15/24 08:51 09:09 09:18 10:31 Temp 97.9 Pulse 76 85 71 Resp 20 15 16 17 B/P (MAP) 143/80 138/92 (107) 138/92 (107) Pulse Ox 100 99 100 O2 Flow Rate 3.0 4.0 4.0 10/15/24 10/15/24 12:25 12:25 Pulse 91 73 Resp 18 20 Pulse Ox 98 99 O2 Delivery Nasal Cannula* Nasal Cannula* O2 Flow Rate 3 3 FiO2 N/A N/A Laboratory Tests Test 10/15/24 09:55 10/15/24 10:46 10/15/24 11:55 White Blood Count 8.3 Red Blood Count 3.59 L Hemoglobin 9.9 L Hematocrit 30.6 L Mean Corpuscular Volume 85.2 Mean Corpuscular Hemoglobin 27.6 Mean Corpuscular Hemoglobin Concent 32.4 L Red Cell Distribution Width 15.5 H Platelet Count 283 Mean Platelet Volume 7.8 Neutrophils (%) (Auto) 69.7 Lymphocytes (%) (Auto) 16.8 L Monocytes (%) (Auto) 11.2 Eosinophils (%) (Auto) 1.2 Basophils (%) (Auto) 1.1 H Neutrophils # (Auto) 5.8 Lymphocytes # (Auto) 1.4 Monocytes # (Auto) 0.9 Eosinophils # (Auto) 0.1 Basophils # (Auto) 0.1 CBC Comment Sodium Level 141 Potassium Level 4.5 Chloride Level 105 Carbon Dioxide Level 29.7 Anion Gap 6 L Blood Urea Nitrogen 48 H Creatinine 1.67 H Estimated GFR/1.73 m2 30 BUN/Creatinine Ratio 28.7 H Glucose Level 136 H Calcium Level 8.3 L Total Bilirubin 0.6 Aspartate Amino Transf (AST/SGOT) 34 Alanine Aminotransferase (ALT/SGPT) 40 Alkaline Phosphatase 133 H Troponin I High Sensitivity 87 *H 90 *H 96 *H Pro-B-Type Natriuretic Peptide 03347 H Total Protein 6.7 Albumin 3.0 L Globulin 3.7 Albumin/Globulin Ratio 0.8 L Chemistry Comments Troponin I High Sens Percent Delta 3 6 Troponin I Hi Sens Absolute Change 3 6 Re-Evaluation Re-evaluation : Bronchodilator Tx Response: moderate relief Re-Evaluation: Improved Progress Patient was seen and examined. Patient was given reassurance. This is a frail female with heart issues as well as COPD history. She was having difficulty breathing. She received IV lines placed on a monitor. Methylprednisone and a treatment of albuterol and ipratropium was given she felt a bit better. She received additional neb treatments. He was some increased perihilar markings possible pneumonia was suggested but most likely due to fluid overload. Patient received Rocephin Zithromax and blood cultures with procalcitonin were then ordered. Patient received Lasix due to her diffuse rhonchi in her lungs pitting edema and low EF. Laboratory work was then obtained. Patient was doing a bit better. Her initial laboratory work showed some anemia which could be contributing to her shortness of breath. Her hemoglobin was nine and 30. Patient's laboratory work shows a BUN of 48 creatinine 1.67. [place] [address] with troponins of 87 and 90. Hospitalist was then consulted and was ultimately admitted for further workup and care. Echocardiogram was also ordered for baseline evaluation. Patient is feeling a bit better had some diuresing. Continuous paleontology teacher interpretation shows normal sinus rhythm heart rate 70s, no ectopy, normal, my interpretation. Pulse oximetry monitor interpretation shows some mild hypoxia satting at 99% on 4 L, abnormal, my interpretation. EKG/XRAY/CT/US/VASC/MRI EKG : Additional Comment [facility] [place] Test Date: 2024-10-15 Test Time: 08:51:37 Pat Name: JOE BRIGGS Department: EMERGENCY ROOM Room: Gender: F Quality Control Lead: : 1950 Requested By: SANJIV Linares Number: [id number] Reading MD: Dr. Sanjiv Cramer Measurements Intervals [place] Rate: 76 P: 0 LA: 52 QRS: 7 QRSD: 96 T: 80 QT: 377 QTc: 424 Interpretive Statements Atrial-paced complexes Anteroseptal infarct, age indeterminate Minimal ST elevation, inferior leads Flutter Electronically Signed On 10-15-2024 12:26:[address] Sanjiv Cramer Please click the below link to view image of tracing. EKG Date and Time:10/15/24 0851 Electronically Signed by: SANJIV CRAMER MD Date and Time: 10/15/24 1226 Chest X-Ray : Additional Comments CHEST RADIOGRAPH Indication: CP Technique: Single frontal view of the chest was obtained COMPARISON: DI CHEST,SINGLE VIEW on DOS: 08/09/24, DI CHEST,SINGLE VIEW on DOS: 02/03/24, DI CHEST,SINGLE VIEW on DOS: 12/25/23, DI CHEST,SINGLE VIEW on DOS: 11/22/23, DI CHEST,SINGLE VIEW on DOS: 09/08/23 FINDINGS: Lines and Tubes: Left chest AICD Lungs: Clear Pleura: No effusion. No pneumothorax. Cardiomediastinal contours: Unremarkable Bones: Unremarkable IMPRESSION: No acute disease. Electronically Signed by:DIAZ WALKER MD Date & Time: 10/15/24 0922 Heart Score: Heart Score Response (Comments) Value History Slightly Suspicious 0 EKG Repolarization Disturb 1 Age >65 2 Risk Factors 1 or 2 risk factors 1 Troponin 1-2 x's Normal limit 1 Total 5 Medical Decision Making Additional info obtained from: old records Differential Dx:Considerations: Include: anxiety, asthma, bronchitis, cardiogenic shock, CHF, COPD, dysrhythmia, hypertension, accelerated, hypertension, essential, hypertension, malignant, hyperventilation, hyponatremia, myocardial infarction, panic attack, pneumonia, pneumonitis, pneumothorax, pulmonary embolism, respiratory distress, respiratory failure, sin usitis, upper resp. infection, other Departure Impression: Primary Impression: COPD exacerbation Additional Impressions: Acute on chronic heart failure Qualified Codes: I50.43 - Acute on chronic combined systolic (congestive) and diastolic (congestive) heart failure Chronic renal insufficiency Qualified Codes: N18.32 - Chronic kidney disease, stage 3b Condition: Guarded Referrals: NO PRIMARY CARE PROVIDER (PCP) Education Educated: Patient Signature Scribe Signature: Scribed for Sanjiv Cramer MD by Nicole Breen . 10/15/24 12:13 Attestation: The note accurately reflects work and decisions made by me.Sanjiv Cramer MD 10/15/24 12:06 SANJIV CRAMER MD Oct 15, 2024 12:06 NICOLE RODNEY Oct 15, 2024 12:13
[2024-10-15] MEDS: ipratropium/albuterol 3ml nebule NEB ONE (12:19)
[2024-10-15 12:25] VITALS: PULSE 73; PULSE 91; RESP 18; RESP 20; O2SAT 98; O2SAT 99
--- NOTE | 2024-10-15 12:31 | HISTORY AND PHYSICAL ---
History & Physical Providers to Chief complaint, shortness of breath ~ History of Present Illness Reason for Admit\Complaint: As above History of Present Illness This is a 74 year old female , with history of multiple medical problems including COPD secondary to tobacco smoking, quit two years ago, chronic kidney disease, CHF ejection fraction 50% associated with pulmonary hypertension in 2023, coronary artery disease, history of OK, anemia hemoglobin 9.9, atrial fibrillation, pacemaker status, hypertension, GERD, history of CVA, diabetes mellitus type 2, dyslipidemia, depression on Cymbalta at home, dyslipidemia, multiple allergies, presented today to emergency department chief complaint shortness of breath; in addition patient presents to the emergency department for complaints of shortness of breath. She states that she is having trouble breathing in addition to a non productive cough. She states that she has COPD and has experienced this before and states she is just having a flare up. She states that she tried nebulizers and inhalers at home. She states that her shortness of breath that worsens at night and she states she is unable to sleep flat. She is on home oxygen at 3L. Additionally she complains of swelling in her legs and states that she has a cut that is seeping fluid. She states that she is takingher lasix. She denies any chest pain. Of note, she was last admitted on 12/25/2023 for respiratory exacerbation. Her last ejection fraction was noted to be 40-45% in August of 2023. Patient denies any other associated symptoms at this time. Patient denies any other alleviating or exacerbating factors. Emergency department she patient was evaluated by physician was diagnosed CHF COPD exacerbation hypoxia, and decision was made to admit patient for further evaluation treatment. No additional complaint or concern. Allergies: Coded Allergies: Penicillins (Verified Allergy, Severe, ANAPHYLAXIS, 12/25/23) ampicillin (Verified Allergy, Severe, ANAPHYLAXIS, 12/25/23) codeine (Verified Allergy, Unknown, 12/25/23) Active prescriptions I reviewed reconciled Home Medications Home Medications Active K-Dur* (Potassium Chloride) 20 Meq Tab.prt.sr 1 Tab PO DAILY 30 Days Lasix (Furosemide) 40 Mg Tablet 1 Tab PO DAILY 30 Days Eliquis (Apixaban) 5 Mg Tablet 2.5 Mg PO BID 30 Days Amiodarone HCl 200 Mg Tablet 1 Tab PO BID 30 Days Metoprolol Succinate 200 Mg Tab.sr.24h 0.5 Tab PO DAILY 30 Days Comp-Air Nebulizer System (Nebulizer/Compressor) 1 Each Each Each INH Q4H PRN Reported Amaryl* (Glimepiride) 1 Mg Tablet 2 Mg PO DAILY Pantoprazole Sodium 40 Mg Tablet.dr 1 Tab PO DAILY 30 Days Ferrous Sulfate 325 Mg Tablet 1 Tab PO BID Breztri Aerosphere Inhaler (Budesonide/Glycopyr/Formoterol) 10.7 Gm Hfa.aer.ad 2 Puffs PO BID Duloxetine HCl 30 Mg Capsule.dr 1 Cap PO DAILY Atorvastatin Calcium 40 Mg Tablet 1 Tab PO DAILY Past Medical History Past Medical History As in HPI Past Surgical History Surgical History Comment As in HPI Family History Family History: Family history was reviewed; no changes noted. Past Social History Social History Comment Deny illicit drug abuse tobacco alcohol use, live with the family good social support Health Maintenance Health Maintenance Noncontributory ROS ROS Constitutional : no fever , no chills, or weakness. No diaphoresis. Allergic/Immunologic, no lymphadenopathy, no hives, no skin eruptions. Eyes, no recent visual changes, no eye pain, no photophobia. Ears, nose, mouth, throat, no sore throat, no nosebleed, no ear pain. Cardiovascular, no palpitations, skipped beats, chest pain, no peripheral edema, Respiratory, positive for dyspnea, orthopnea, cough, hemoptysis, chest wall pain. Gastrointestinal, no abdominal pain, nausea, vomiting, constipation or diarrhea. : no dysuria, hematuria, pelvic pain, urethral d/c. Endocrine, no polyuria, polydipsia, recent unintentional weight gain or loss. Hematologic/Lymphatic, no petechiae, no enlarged lymph nodes, no bone pain. Integumentary, no rash, no skin lesions, Musculoskeletal, no muscle aches, or pain, no muscle cramps, no recent change in gait Neurological, no dizziness, no headache, no syncope, no paresthesia. Psychiatric, no delusions, visual hallucinations, or hearing hallucinations. ROS - in rest is as in HPI. Exam Vitals: Vital Signs Date Time Temp Pulse Resp B/P (MAP) Pulse Ox O2 Delivery O2 Flow Rate FiO2 10/15/24 12:25 73 20 99 Nasal Cannula* 3 N/A 10/15/24 10:31 138/92 (107) 10/15/24 08:51 97.9 Vital signs, stable ,afebrile. Pulse Oximetry reflects adequate oxygenation on 3 L oxygen nasal cannula. BMI is 29, General: well developed, well nourished. Awake , alert, and oriented x4, resting comfortably in the bed, in no acute distress . Skin: Warm, dry, no pallor, no rash or petechiae. HEENT: Atraumatic, normocephalic, EOMI, anicteric sclera B; pink conjunctiva; PERRLA, normal oropharynx, moist oral and nasal mucosa. Tympanic membrane , nose , throat clear. Neck: Trachea midline. Supple, full range of motion, no JVD, bruit , hepatojugular reflex , lymphadenopathy or masses, or other lesions Cardiac: Regular rhythm, regular rate no murmurs, rubs, or gallops. Normal S1 and S2, no S3 noticed. PMI is normal. Respiratory: Distant associated with scattered rales, Equal breath sounds bilaterally, no tachypnea; lungs clear to auscultation bilaterally, no wheezing ,rub , no crackles. Chest wall is symmetric and without deformity. No signs of trauma. Chest wall is nontender. No signs of respiratory distress. Resonance is normal upon percussion bilaterally. Gastrointestinal: Abdomen symmetric, non-distended, soft, non-tender, normal bowel sounds x4 quadrant, normoactive, no hepatosplenomegaly , no masses , no bruit, no flank pain bilaterally. No voluntary guarding, rebound, or rigidity. No tenderness to percussion. No pulsatile masses. Equal femoral pulses. No Spangler's sign or McBurney point tenderness. Back; no CVA tenderness bilaterally, no deformities. Neck and back are without deformity as well. No tenderness noted on palpation of the spinous processes. Spinous processes are midline. Cervical, thoracic, and lumbar paraspinal muscles are not tender and are without spasm. : Not indicated Musculoskeletal: Extremities, normal range of motion, non-tender, muscle strength 5/5 x 4. Negative Homans signs bilaterally on lower extremity. Distal pulses full symmetrical, no clubbing, cyanosis , edema. Neurological: Speech is clear, alert, and oriented x 4. No motor or sensory deficit, deep tendon reflexes normal, cerebellar intact. Cranial nerves II-XII intact. Psych: Alert and or appropriate, normal affect. Vascular: Good distal pulses, which are equal x4; capillary refill less than 2 seconds. Lymphatic, no lymphadenopathy. Diagnostic Data Last Recorded Lab Results: 10/15/[id number]/24954 Advance Care Planning Advanced Care plannin - 30 Minutes Additional Plan Assessment COPD exacerbation, CHF preserved ejection fraction associated with pulmonary hypertension in exacerbation Acute respiratory failure secondary to hypoxia Acute renal failure Non ST-elevation OK type 2 secondary to all of the above Chronic respiratory failure on home oxygen in exacerbation Chronic kidney disease Coronary artery disease status post OK Atrial fibrillation pacemaker status Diabetes mellitus type 2 fair control Additional comorbidities, anemia hemoglobin 9.9, GERD, hypertension, history of CVA, ex-smoker, dyslipidemia, depression on Cymbalta at home, multiple allergies Plan IV Lasix, steroids, antibiotics SVN DuoNeb, oxygen support therapy, incentive spirometry Echocardiography pending Hyperglycemia sliding scale Dr. Nunez is patient form builder Serial troponin EKG Nitroglycerin aspirin, Farxiga, on board Reconciled home medications DVT gastropathy prophylaxis addressed Sepsis Screening Reassessment Date: Oct 15, 2024 Date of Service: Oct 15, 2024 Billing Provider: LOTTIE WASHINGTON MD Common Visit Codes: 27793-DFTHCNQ INP/OBS CARE (HIGH) Secondary Visit Codes: 52416-VUAJDXAW CARE PLAN 30 MINUTES LOTTIE WASHINGTON MD Oct 15, 2024 12:31
[2024-10-15] MEDS ORDERED: ondansetron/PF 4mg/2ml inj IV PRN (12:35)
[2024-10-15] MEDS ORDERED: magnesium hydroxide 30ml (MOM) UD suspension PO PRN (12:35)
[2024-10-15] MEDS ORDERED: HYDROcodone/acetaminophen 5mg/325mg tablet PO PRN (12:35)
[2024-10-15] MEDS ORDERED: acetaminophen 325mg tablet PO PRN ×2 (12:35)
[2024-10-15] MEDS ORDERED: morphine 2 MG/ML inj. syringe IV PRN (12:35)
[2024-10-15] MEDS ORDERED: diphenhydrAMINE 25mg capsule PO PRN (12:35)
[2024-10-15] MEDS ORDERED: ondansetron 4mg rapidly disintigrating tab PO PRN ×2 (12:35→20:35)
[2024-10-15] MEDS ORDERED: acetaminophen 650mg rectal suppository RC PRN (12:35)
[2024-10-15] MEDS ORDERED: mag hydrox/Alum hydrox/simeth 30ml oral suspension PO PRN (12:35)
[2024-10-15] MEDS ORDERED: diphenhydrAMINE 50 mg/ml inj IV PRN (12:35)
[2024-10-15] MEDS ORDERED: bisacodyl 10mg suppository rectal RC PRN (12:35)
[2024-10-15] MEDS: CefTRIAXone 2gm/D5W 50ml BAG 50 ML IV ONE (12:40)
[2024-10-15] MEDS: methylPREDNISolone sod succ 125mg/2ml vial IV ONE (12:41)
[2024-10-15] MEDS: furosemide 10 MG/1 ML 10ml inj IV ONE (12:43)
[2024-10-15] MEDS ORDERED: dextrose 50%-water 50ml dispensing syringe IV PRN ×2 (13:10)
[2024-10-15] MEDS ORDERED: glucagon, human recombinant 1mg kit SUBCUT PRN (13:10)
[2024-10-15] MEDS ORDERED: DEXTROSE 15 GM of carb/4 tabs (each vial/BOTTLE has 4 tablets) PO PRN ×2 (13:10)
[2024-10-15 13:22] LABS: APTT 25 SECONDS (22-32); D-DIMER 0.34 MG/L FEU (0-0.50); INR 1.1 INR; PROTHROMBIN TIME 11.4 SECONDS (9.0-12.0)
[2024-10-15 13:31] LABS: HEMOGLOBIN A1C 6.8 % (4.5-6.2)
[2024-10-15 13:32] LABS: MAGNESIUM 2.2 MG/DL (1.5-2.4); PHOSPHORUS 4.4 MG/DL (2.3-4.5)
[2024-10-15 14:44] VITALS: BP 170/89; PULSE 108; RESP 15; TEMP 97.6; O2SAT 99
[2024-10-15] MEDS: normal saline 1000ml 1,000 ML IV SCH (16:52)
[2024-10-15] MEDS: azithromycin/NS 500mg/250ml 250 ML IV ONE (16:52)
[2024-10-15] MEDS: methylPREDNISolone sod succ 125mg/2ml vial IV SCH (16:57)
[2024-10-15 18:00] VITALS: BP 158/98; PULSE 94; RESP 21; TEMP 97.4; O2SAT 97
[2024-10-15] MEDS: INSULIN LISPRO 100 UNIT/ML INSULN.PEN MULTI-DOSE SQ SCH ×2 (18:00→18:10)
--- NOTE | 2024-10-15 18:35 | CARDIOLOGY REPORT ---
APPROVED REPORT EXAM: Comprehensive 2D, Doppler, and color-flow Echocardiogram. Patient Location: ED3 Blood Pressure: 138/92 mmHg Heart Rate: 60-70 bpm Rhythm: Atrial Fibrillation Indications SOB CHF ME AFIB Diabetes COPD Pacemaker Troponin 96 Pro BNP 36254 Mixing Roll Operator is Brian Nunez MD. Previous echo 12/26/23 [facility] 50% EF ; mod TR 2D Dimensions LA Diam4.6 cm IVSd 1.0 (0.7-1.1cm) LVDd 5.1 cm PWd 1.0 (0.7-1.1cm) IVSs 1.3 (0.8-1.2cm) LVDs 4.0 (2.5-4.0cm) Aortic Root(2D) 2.6 cm PWs 1.3 (0.8-1.2cm) LVOT Diameter 1.94 (1.8-2.4cm) LVEF(%) 44.3 (>50%) Ao Asc Diam.3.06 cmIVC 22.47 mm FS (%) 22.1 % SV 54.6 ml CO 5.0 L/min M-Mode Dimensions MV EPSS 1.4 (<0.5cm) Aortic Valve AoV Peak [place]im. 139.5 cm/s AoV VTI 28.7 cm AO Peak GR. 7.8 mmHg AO Mean GR. 4 mmHg LVOT VTI 20.06 cm LVOT Peak [place]. 101.1 cm/s LISA(VTI)/BSA 2.07 cm2/m2 LISA (VTI) 2.07 cm2 Mitral Valve MV E Velocity 103.6 cm/s MV Peak Gr. 6 mmHg MV DECEL TIME 124 ms MV PHT 60 ms MVA (PHT) 3.67 cm2 MV [id number] cm/s Tricuspid Valve TR P. Velocity 301 cm/s RAP ESTIMATE 10 mmHg TR Peak Gr. 36 mmHg RVSP 46 mmHg LEFT VENTRICLE Normal LV size and wall thickness. Overall systolic function is moderately reduced. LVEF is 40%. RIGHT VENTRICLE RV appears normal in size and function.Pacemaker wire in right heart. RVSP is estimated at 46 mmHG. ATRIA Left atrium is moderately dilated. Right atrium is moderately dilated. AORTIC VALVE Trileaflet AV appears sclerotic without stenosis. No insufficiency. MITRAL VALVE MV is thickened with mild annular calcification and no stenosis. Moderate mitral regurgitation. TRICUSPID VALVE The tricuspid valve is normal in structure. Moderate tricuspid regurgitation. PULMONIC VALVE The pulmonary valve is normal in structure. Trace pulmonic regurgitation. GREAT VESSELS The aortic root is normal in size. The ascending aorta is normal in size. IVC is dilated and collapse s greater than 50% with inspiration. PERICARDIUM Trace circumferential pericardial effusion with no evidence of hemodynamic compromise. Other Information Study Quality: Adequate Conclusion Normal LV size and wall thickness. Overall systolic function is moderately reduced. LVEF is 40%. RV appears normal in size and function. Pacemaker wire in right heart. RVSP is estimated at 46 mmHG. Left atrium is moderately dilated. Right atrium is moderately dilated. Trileaflet AV appears sclerotic without stenosis. No insufficiency. MV is thickened with mild annular calcification and no stenosis. Moderate mitral regurgitation. The tricuspid valve is normal in structure. Moderate tricuspid regurgitation. Trace circumferential pericardial effusion with no evidence of hemodynamic compromise.
[2024-10-15] MEDS: docusate sod 100mg capsule PO SCH (19:59)
[2024-10-15 20:00] VITALS: RESP 21; O2SAT 94
[2024-10-15] MEDS ORDERED: AMI200T PO (20:11)
[2024-10-15] MEDS ORDERED: METO-411 PO (20:16)
[2024-10-15] MEDS ORDERED: FURO-150 PO (20:16)
[2024-10-15] MEDS ORDERED: TRAZ-251 PO (20:16)
[2024-10-15] MEDS ORDERED: GLIP2.5T23 PO (20:16)
[2024-10-15] MEDS ORDERED: APIX2.5T PO (20:16)
[2024-10-15] MEDS ORDERED: ONDA-243 PO (20:16)
[2024-10-15] MEDS ORDERED: temazepam 15mg capsule PO PRN (21:00)
[2024-10-15 21:08] LABS: ALANINE AMINOTRANSFERASE 41 U/L (12-78); ALBUMIN 3.1 G/DL (3.4-5.0); ALBUMIN/GLOBULIN RATIO 0.8 (1.1-1.5); ALKALINE PHOSPHATASE 143 IU/L (46-116); ASPARTATE AMINO TRANSFERASE 42 U/L (10-37); BILIRUBIN,DIRECT 0.3 MG/DL (0-0.3); BILIRUBIN,TOTAL 0.9 MG/DL (0.1-1.0); FREE T4 (FREE THYROXINE) 1.32 NG/DL (0.73-1.40); THYROID STIMULATING HORMONE 0.94 ulU/ml (0.34-4.50)
[2024-10-15] MEDS: amiodarone 200mg tablet PO ONE (21:43)
[2024-10-15] MEDS: traZODone 50mg tablet PO SCH (21:43)
[2024-10-15] MEDS: metoprolol succinate 25mg (24-HOUR) SR. Tablet PO ONE ×2 (21:57→22:12)
[2024-10-15 22:00] VITALS: BP 123/55; PULSE 92; RESP 21; TEMP 97.5; O2SAT 93
[2024-10-16] VITALS (8 sets, daily range): BP systolic 108–169; BP diastolic 53–88; PULSE 65–88; RESP 16–24; TEMP 97–98.4; O2SAT 96–100
[2024-10-16 06:02] LABS: BASOPHILS % (AUTO) 0.1 % (0-1); EOSINOPHILS % (AUTO) 0 % (0-6); HEMATOCRIT 30.9 % (35.0-45.0); HEMOGLOBIN 10.2 g/dl (12.0-16.0); LYMPHOCYTES # (AUTO) 0.4 X10'3 (1.1-4.8); LYMPHOCYTES % (AUTO) 8.9 % (21-51); MEAN CORPUSCULAR HEMOGLOBIN 28.3 PG (27.0-31.0); MEAN CORPUSCULAR VOLUME 85.9 FL (78-98); MONOCYTES # (AUTO) 0.1 X10'3 (0-0.9); MONOCYTES % (AUTO) 2.2 % (2-12); NEUTROPHILS # (AUTO) 4.4 X10'3 (1.8-7.7); NEUTROPHILS % (AUTO) 88.8 % (42-75); PLATELET COUNT 254 X10'3 (140-440); RED BLOOD COUNT 3.59 X10'6 (4.20-5.60); RED CELL DISTRIBUTION WIDTH 15.6 % (11.5-14.5); WHITE BLOOD COUNT 4.9 X10'3 (4.5-11.0)
[2024-10-16 06:14] LABS: ALANINE AMINOTRANSFERASE 96 U/L (12-78); ALBUMIN 2.9 G/DL (3.4-5.0); ALBUMIN/GLOBULIN RATIO 0.8 (1.1-1.5); ALKALINE PHOSPHATASE 152 IU/L (46-116); ANION GAP 6 (8-16); ASPARTATE AMINO TRANSFERASE 95 U/L (10-37); BILIRUBIN,TOTAL 0.6 MG/DL (0.1-1.0); BLOOD UREA NITROGEN 54 MG/DL (7-18); BUN/CREATININE RATIO 30.3 (10.0-20.0); CALCIUM 8.5 MG/DL (8.5-10.1); CHLORIDE 102 MMOL/L (99-107); CHOL/HDL RATIO 1.9 (0.00-4.99); CHOLESTEROL 143 MG/DL (0-200); CREATININE 1.78 MG/DL (0.40-0.90); GLUCOSE 311 MG/DL (70-104); HDL CHOLESTEROL 75 MG/DL (35-60); LDL CHOLESTEROL 58 MG/DL (50-100); POTASSIUM 4.4 MMOL/L (3.5-5.1); SODIUM 138 MMOL/L (135-145); TOTAL CARBON DIOXIDE 29.6 MMOL/L (24-32); TOTAL PROTEIN 6.7 G/DL (6.4-8.2); TRIGLYCERIDES 48 MG/DL (20-135); eCRCL 22 ML/MIN; eGFR 28 ML/MIN
[2024-10-16] MEDS: pantoprazole 40mg Tablet.DR PO SCH (07:42)
[2024-10-16] MEDS: apixaban 2.5mg tablet PO SCH (07:42)
[2024-10-16] MEDS: atorvastatin 20mg tablet PO SCH (07:42)
[2024-10-16] MEDS: amiodarone 200mg tablet PO SCH (07:42)
[2024-10-16] MEDS: ferrous sulfate 325mg tablet PO SCH (07:43)
[2024-10-16] MEDS: metoprolol succinate 25mg (24-HOUR) SR. Tablet PO SCH (07:43)
[2024-10-16] MEDS: furosemide 40mg/4ml inj IV SCH (07:44)
[2024-10-16] MEDS: aspirin 81mg, enteric-coated 1 TAB TABLET.DR PO SCH (07:44)
[2024-10-16] MEDS: CefTRIAXone/D5W-Rocephin 1gm 50 ML IV SCH (07:46)
[2024-10-16] MEDS ORDERED: furosemide 20MG tablet PO SCH (08:00)
[2024-10-16] MEDS: nitroGLYCERIN 0.2mg/hour patch TD SCH (08:00)
[2024-10-16] MEDS: Budesonide/Glycopyr/Formoterol (Breztri Aerosphere Inhaler) PO SCH (08:00)
[2024-10-16] MEDS: DAPAGLIFLOZIN 10MG TABLET PO SCH (08:48)
[2024-10-16] MEDS: azithromycin/NS 500mg/250ml 250 ML IV SCH (08:49)
--- NOTE | 2024-10-16 11:56 | PROGRESS NOTE ---
Daily Progress Note Providers to CC , shortness of breath, mild improvement ~ Central Line/PICC still needed: No Whaley-Non Protocol Whaley Indications Met/Not Met: F/C Indications Not Met Antibiotic Timeout Antibiotic Ordered?: Yes MRSA Education MRSA Education Provided to pt: Yes Subjective As above Objective Vital Signs Date Time Temp Pulse Resp B/P (MAP) Pulse Ox O2 Delivery O2 Flow Rate FiO2 10/16/24 10:35 97.0 88 24 108/59 (75) 100 Nasal Cannula 3.0 10/15/24 12:25 N/A Vital signs, stable ,afebrile. Pulse Oximetry reflects adequate oxygenation on 3 L oxygen nasal cannula General: well developed, well nourished. Awake , alert, and oriented x4, resting comfortably in the bed, in no acute distress . Skin: Warm, dry, no pallor, no rash or petechiae. HEENT: Atraumatic, normocephalic, EOMI, anicteric sclera B; pink conjunctiva; PERRLA, normal oropharynx, moist oral and nasal mucosa. Tympanic membrane , nose , throat clear. Neck: Trachea midline. Supple, full range of motion, no JVD, bruit , hepatojugular reflex , lymphadenopathy or masses, or other lesions Cardiac: Regular rhythm, regular rate no murmurs, rubs, or gallops. Normal S1 and S2, no S3 noticed. PMI is normal. Respiratory: Distant associated with scattered rales Equal breath sounds bilaterally, no tachypnea; lungs clear to auscultation bilaterally, no wheezing ,rub or crackles. Chest wall is symmetric and without deformity. No signs of trauma. Chest wall is nontender. No signs of respiratory distress. Resonance is normal upon percussion bilaterally. Gastrointestinal: Abdomen symmetric, non-distended, soft, non-tender, normal bowel sounds x4 quadrant, normoactive, no hepatosplenomegaly , no masses , no bruit, no flank pain bilaterally. No voluntary guarding, rebound, or rigidity. No tenderness to percussion. No pulsatile masses. Equal femoral pulses. No Spangler's sign or McBurney point tenderness. Back; no CVA tenderness bilaterally, no deformities. Neck and back are without deformity as well. No tenderness noted on palpation of the spinous processes. Spinous processes are midline. Cervical, thoracic, and lumbar paraspinal muscles are not tender and are without spasm. Musculoskeletal: Extremities, normal range of motion, non-tender, muscle strength 5/5 x 4. Negative Homans signs bilaterally on lower extremity. Distal pulses full symmetrical, no clubbing, cyanosis , bilateral lower extremity plus two edema Neurological: Speech is clear, alert, and oriented x 4. No motor or sensory deficit, deep tendon reflexes normal, cerebellar intact. Cranial nerves II-XII intact. Psych: Alert and or appropriate, normal affect. Vascular: Good distal pulses, which are equal x4; capillary refill less than 2 seconds. Lymphatic, no lymphadenopathy. Result Diagram: 10/16/24 0520 10/16/24 0520 Coagulation Studies Laboratory Tests Test 10/15/24 12:51 Prothrombin Time 11.4 SECONDS (9.0-12.0) INR International Normalized Ratio 1.1 INR Activated Partial Thromboplast Time 25 SECONDS (22-32) D-Dimer 0.34 MG/L FEU (0-0.50) D-Dimer Comment Coagulation Comments Problem\Assessment\Plan Assessment COPD exacerbation, CHF decreased ejection fraction 40%, associated with pulmonary hypertension in exacerbation Acute respiratory failure secondary to hypoxia Acute renal failure Non ST-elevation [place] type 2 secondary to all of the above Chronic respiratory failure on home oxygen in exacerbation Chronic kidney disease Coronary artery disease status post [place] Atrial fibrillation pacemaker status Diabetes mellitus type 2 fair control Additional comorbidities, anemia hemoglobin 9.9, GERD, hypertension, history of CVA, ex-smoker, dyslipidemia, depression on Cymbalta at home, multiple allergies Plan IV Lasix, steroids, antibiotics SVN DuoNeb, oxygen support therapy, incentive spirometry Echocardiography completed Hyperglycemia sliding scale Dr. Nunez forward air controller/air officer team consulted patient appreciated expertise and assistance Serial troponin EKG Nitroglycerin aspirin, Farxiga, on board Reconciled home medications DVT gastropathy prophylaxis addressed Sepsis Screening Reassessment Date: Oct 16, 2024 Date of Service: Oct 16, 2024 Billing Provider: LOTTIE WASHINGTON MD Common Visit Codes: [id number] INP/OBS CARE(HIGH) LOTTIE WASHINGTON MD Oct 16, 2024 11:56
--- NOTE | 2024-10-16 16:15 | CONSULTATION REPORT ---
History of Present Illness Providers to CC CC: MARCUS NUNEZ MD ~ Reason for Admit\Admit Dx: Cardiology consultation Refering MD: SHEREE History of Present Illness This is a 74-year-old female who presented secondary to increased shortness for breath and lower extremity edema. She has a past medical history that is significant for hypertension, hyperlipidemia, diabetes mellitus, heart failure with improved ejection fraction, chronic kidney disease with baseline creatinine 1.7-1.8, atrial fibrillation, carotid artery stenosis, COPD on home oxygen. Patient reports increased shortness for breath over the past few days. When asked she reports since being sick. Reports low-grade fevers. She reports cough that is not productive. Lower extremity edema. Allergies: Coded Allergies: Penicillins (Verified Allergy, Severe, ANAPHYLAXIS, 12/25/23) ampicillin (Verified Allergy, Severe, ANAPHYLAXIS, 12/25/23) codeine (Verified Allergy, Unknown, 12/25/23) Home Medications Home Medications Active Reported Glipizide ER (Glipizide) 2.5 Mg Tab.er.24 1 Tab PO DAILY 30 Days Metoprolol Succinate 100 Mg Tab.sr.24h 1 Tab PO DAILY 30 Days Ondansetron Odt (Ondansetron HCl) 4 Mg Tab.rapdis 1 Tab PO Q6H PRN PRN 4 Days Lasix* (Furosemide) 20 Mg Tablet 1 Tab PO BID Trazodone HCl 50 Mg Tablet 1 Tab PO HS 30 Days Eliquis (Apixaban) 2.5 Mg Tablet 1 Tab PO BID 30 Days Cordarone (Amiodarone HCl) 200 Mg Tablet 1 Tab PO BID 30 Days Pantoprazole Sodium 40 Mg Tablet.dr 1 Tab PO DAILY 30 Days Ferrous Sulfate 325 Mg Tablet 1 Tab PO BID Breztri Aerosphere Inhaler (Budesonide/Glycopyr/Formoterol) 10.7 Gm Hfa.aer.ad 2 Puffs PO BID Atorvastatin Calcium 40 Mg Tablet 1 Tab PO DAILY Past Medical History Medical History Comment Hypertension Hyperlipidemia Diabetes Heart failure with improved ejection fraction status post ICD Chronic kidney disease stage 3 with baseline creatinine 1.7-1.8 Atrial fibrillation Carotid artery stenosis COPD on oxygen 3 L via nasal cannula Past Surgical History Surgical History Comment ICD Orthopedic Past Social History Social History Comment History of smoking but has quit. Physical Exam Last Vital Signs Recorded: RN Vital Signs have been reviewed: Yes, Temperature: 98.4, Source: Oral, Heart Rate: 73, Respiratory Rate: 17, BP: 124/56, Pulse Oximetry: 96, Weight: 72.730 Physical Exam General: Awake, alert, oriented. No apparent distress Neck: Supple. Normal range of motion. No JVD Respiratory: Lungs are coarse to auscultation bilaterally. No respiratory distress. Chest: Normal shape and size. No accessory muscle use. Cardiovascular: Irregularly irregular. S1-S2. No murmur, gallop, rub. Gastrointestinal: Abdomen is soft. Nontender to palpation. Bowel sounds present. Extremities: No lower extremity edema, cyanosis or clubbing. Neurologic: Alert and oriented x4. Nonfocal Psychiatric: Normal mood and affect. Skin: Normal color. Warm and dry. Review of Systems ROS Patient complains of shortness for breath. No chest pain or pressure. Complains of lower extremity edema. Otherwise, review of systems negative except specifically documented in HPI. Results Echocardiogram Echocardiogram Conclusion Normal LV size and wall thickness. Overall systolic function is moderately reduced. LVEF is 40%. RV appears normal in size and function. Pacemaker wire in right heart. RVSP is estimated at 46 mmHG. Left atrium is moderately dilated. Right atrium is moderately dilated. Trileaflet AV appears sclerotic without stenosis. No insufficiency. MV is thickened with mild annular calcification and no stenosis. Moderate mitral regurgitation. The tricuspid valve is normal in structure. Moderate tricuspid regurgitation. Trace circumferential pericardial effusion with no evidence of hemodynamic compromise. Dictated by:NIGEL SILVER MD Dictation date and time:10/15/241833 Diagram Lab Result Diagram: 10/16/24 0520 10/16/24 0520 Assessment/Plan Additional Plan This is a 74-year-old female who presented secondary to shortness for breath. The following is her problem list: Acute on chronic systolic heart failure Continue metoprolol succinate Previously unable to tolerate JAI/Arb secondary to hypotension Continue with diuresis till euvolemic Strict intake and output measurements recommended Nonrheumatic mitral regurgitation Moderate MR on echocardiogram Diuresis as noted above COPD Receiving azithromycin and ceftriaxone Hospitalist managing Minimally elevated troponins No chest pain Likely rapid since MN type 2 given systolic heart failure and flat troponins Stress test October 2023 neg for ischemia Discussed with Dr. Alli Nunez who is in agreement with the above plan. Supervising MD Supervising Physician: PAPI Meneses MAILROOM COORDINATOR Oct 16, 2024 16:15
[2024-10-17] VITALS (14 sets, daily range): BP systolic 124–154; BP diastolic 59–88; PULSE 70–90; RESP 15–22; TEMP 97.3–97.8; O2SAT 70–100
[2024-10-17 06:26] LABS: BASOPHILS % (AUTO) 0.2 % (0-1); EOSINOPHILS % (AUTO) 0 % (0-6); HEMATOCRIT 29.2 % (35.0-45.0); HEMOGLOBIN 9.8 g/dl (12.0-16.0); LYMPHOCYTES # (AUTO) 0.4 X10'3 (1.1-4.8); LYMPHOCYTES % (AUTO) 3.3 % (21-51); MEAN CORPUSCULAR HEMOGLOBIN 28.6 PG (27.0-31.0); MEAN CORPUSCULAR HGB CONC 33.5 g/dL (33.0-36.5); MEAN CORPUSCULAR VOLUME 85.3 FL (78-98); MEAN PLATELET VOLUME 7.4 FL (7.4-10.4); MONOCYTES # (AUTO) 0.2 X10'3 (0-0.9); MONOCYTES % (AUTO) 2.1 % (2-12); NEUTROPHILS # (AUTO) 10.4 X10'3 (1.8-7.7); NEUTROPHILS % (AUTO) 94.4 % (42-75); PLATELET COUNT 258 X10'3 (140-440); RED BLOOD COUNT 3.42 X10'6 (4.20-5.60); RED CELL DISTRIBUTION WIDTH 15.3 % (11.5-14.5)
[2024-10-17 06:43] LABS: ALANINE AMINOTRANSFERASE 71 U/L (12-78); ALBUMIN 2.8 G/DL (3.4-5.0); ALBUMIN/GLOBULIN RATIO 0.8 (1.1-1.5); ALKALINE PHOSPHATASE 128 IU/L (46-116); ANION GAP 7 (8-16); ASPARTATE AMINO TRANSFERASE 42 U/L (10-37); BILIRUBIN,TOTAL 0.5 MG/DL (0.1-1.0); BLOOD UREA NITROGEN 61 MG/DL (7-18); BUN/CREATININE RATIO 30.3 (10.0-20.0); CALCIUM 8.2 MG/DL (8.5-10.1); CHLORIDE 104 MMOL/L (99-107); CREATININE 2.01 MG/DL (0.40-0.90); GLUCOSE 221 MG/DL (70-104); SODIUM 141 MMOL/L (135-145); TOTAL CARBON DIOXIDE 30.2 MMOL/L (24-32); TOTAL PROTEIN 6.3 G/DL (6.4-8.2); eCRCL 19 ML/MIN; eGFR 24 ML/MIN
[2024-10-17] MEDS ORDERED: nitroGLYCERIN 0.4mg SUBLingual tab SL PRN (11:05)
[2024-10-17] MEDS ORDERED: metoprolol tartrate 1mg/ml inj IV PRN (11:05)
[2024-10-17] MEDS ORDERED: aminophylline 500mg/20ml vial IV PRN (11:05)
[2024-10-17] MEDS: regadenoson 0.4mg/5ml syringe IV PRN (11:17)
--- NOTE | 2024-10-17 13:52 | RADIOLOGY REPORT ---
EXAM: NM NM ANA MARIA SCAN History: nstemi Comparison Study: None available TECHNIQUE: Resting myocardial perfusion imaging was performed approximately 30 minutes following the injection of 8.07 mCi of Tc-99m sestamibi. Peak pharmacologic stress, the patient was injected with 3 2.22 mCi of Tc-99m sestamibi. Gated post stress images were acquired in the supine and prone position s approximately 30 minutes after stress and left ventricular ejection fraction (LVEF) was calculated. Findings: The overall quality of the study is adequate. The left ventricular cavity is noted to be normal. There is no evidence of abnormal lung activity. Mild radiotracer uptake in the right ventricle. Myocardial perfusion images demonstrate homogeneous tracer distribution throughout the myocardium wit h no scintigraphic evidence of myocardial ischemia or necrosis/scar. Gated imaging reveals normal thickening and wall motion with a calculated reduced LVEF of 41 % with e nd-diastolic volume of 66 mL at stress. Impression: 1. No evidence of ischemia or scar. 2. Overall gated left ventricular systolic function was normal with calculated reduced LVEF of 41 % a t stress. 3. No left ventricular dilatation. 4. Mild radiotracer uptake in the right ventricle. Correlate for right heart dysfunction.
[2024-10-17] MEDS: normal saline 500ml IV soln 500 ML IV ONE (18:15)
--- NOTE | 2024-10-17 18:18 | PROGRESS NOTE ---
Daily Progress Note Providers to CC Complaint, cough, shortness of breath mild improvement ~ Central Line/PICC still needed: No Whaley-Non Protocol Whaley Indications Met/Not Met: F/C Indications Not Met Antibiotic Timeout Antibiotic Ordered?: Yes MRSA Education MRSA Education Provided to pt: Yes Subjective As above Objective Vital Signs Date Time Temp Pulse Resp B/P (MAP) Pulse Ox O2 Delivery O2 Flow Rate FiO2 10/17/24 15:00 97.6 90 18 128/82 (97) 97 Nasal Cannula 3.0 10/15/24 12:25 N/A Vital signs, stable ,afebrile. Pulse Oximetry reflects adequate oxygenation. 3 L oxygen nasal cannula General: well developed, well nourished. Awake , alert, and oriented x4, resting comfortably in the bed, in no acute distress . Skin: Warm, dry, no pallor, no rash or petechiae. HEENT: Atraumatic, normocephalic, EOMI, anicteric sclera B; pink conjunctiva; PERRLA, normal oropharynx, moist oral and nasal mucosa. Tympanic membrane , nose , throat clear. Neck: Trachea midline. Supple, full range of motion, no JVD, bruit , hepatojugular reflex , lymphadenopathy or masses, or other lesions Cardiac: Regular rhythm, regular rate no murmurs, rubs, or gallops. Normal S1 and S2, no S3 noticed. PMI is normal. Respiratory: Distant Equal breath sounds bilaterally, no tachypnea; lungs clear to auscultation bilaterally, no wheezing ,rub or rales, or crackles. Chest wall is symmetric and without deformity. No signs of trauma. Chest wall is nontender. No signs of respiratory distress. Resonance is normal upon percussion bilaterally. Gastrointestinal: Abdomen symmetric, non-distended, soft, non-tender, normal bowel sounds x4 quadrant, normoactive, no hepatosplenomegaly , no masses , no bruit, no flank pain bilaterally. No voluntary guarding, rebound, or rigidity. No tenderness to percussion. No pulsatile masses. Equal femoral pulses. No Spangler's sign or McBurney point tenderness. Back; no CVA tenderness bilaterally, no deformities. Neck and back are without deformity as well. No tenderness noted on palpation of the spinous processes. Spinous processes are midline. Cervical, thoracic, and lumbar paraspinal muscles are not tender and are without spasm. Musculoskeletal: Extremities, normal range of motion, non-tender, muscle strength 5/5 x 4. Negative Homans signs bilaterally on lower extremity. Distal pulses full symmetrical, no clubbing, cyanosis , edema. Neurological: Speech is clear, alert, and oriented x 4. No motor or sensory deficit, deep tendon reflexes normal, cerebellar intact. Cranial nerves II-XII intact. Psych: Alert and or appropriate, normal affect. Vascular: Good distal pulses, which are equal x4; capillary refill less than 2 seconds. Lymphatic, no lymphadenopathy. Result Diagram: 10/17/24 0617 10/17/24 0617 Coagulation Studies Laboratory Tests Test 10/15/24 12:51 Prothrombin Time 11.4 SECONDS (9.0-12.0) INR International Normalized Ratio 1.1 INR Activated Partial Thromboplast Time 25 SECONDS (22-32) D-Dimer 0.34 MG/L FEU (0-0.50) D-Dimer Comment Coagulation Comments Problem\Assessment\Plan Assessment COPD exacerbation, CHF decreased ejection fraction 40%, associated with pulmonary hypertension in exacerbation Acute respiratory failure secondary to hypoxia Acute renal failure Non ST-elevation [place] type 2 secondary to all of the above Chronic respiratory failure on home oxygen in exacerbation Chronic kidney disease Coronary artery disease status post [place] Atrial fibrillation pacemaker status Diabetes mellitus type 2 fair control Additional comorbidities, anemia hemoglobin 9.9, GERD, hypertension, history of CVA, ex-smoker, dyslipidemia, depression on Cymbalta at home, multiple allergies Plan IV Lasix, steroids, antibiotics SVN DuoNeb, oxygen support therapy, incentive spirometry Echocardiography completed Hyperglycemia sliding scale Dr. Nunez miter cutter team consulted patient appreciated expertise and assistance Serial troponin EKG Nitroglycerin aspirin, Farxiga, on board Reconciled home medications DVT gastropathy prophylaxis addressed Sepsis Screening Reassessment Date: Oct 17, 2024 Date of Service: Oct 17, 2024 Billing Provider: LOTTIE WASHINGTON MD Common Visit Codes: [id number] INP/OBS CARE(HIGH) LOTTIE WASHINGTON MD Oct 17, 2024 18:18
[2024-10-17 19:04] LABS: OSMOLALITY 321 MOSM/K (280-300)
[2024-10-17 19:48] LABS: BILIRUBIN,URINE NEGATIVE (Neg); CLARITY,URINE CLEAR (Clear); COLOR,URINE YELLOW (Yellow); GLUCOSE, URINE >=1000 mg/dl (Neg); KETONES,URINE NEGATIVE (Neg); LEUKOCYTE ESTERASE ,URINE NEGATIVE (Neg); NITRITES, URINE NEGATIVE (Neg); OCCULT BLOOD,URINE NEGATIVE (Neg); PH,URINE 5.5 (4.8-8.0); PROTEIN,URINE NEGATIVE (Neg); UROBILINOGEN,URINE 0.2 E.U/dL (0.2-1.0)
[2024-10-17 19:50] LABS: UA COLLECTION TYPE CLN CATCH MIDSTREAM
[2024-10-17 19:55] LABS: BACTERIA,URINE NONE SEEN /HPF (Neg); RBC,URINE NONE SEEN /HPF (0-2); WBC,URINE NONE SEEN /HPF (0-4)
[2024-10-17 19:56] LABS: SQUAMOUS EPITHELIAL CELL,UR FEW /LPF (FEW)
[2024-10-18 02:00] VITALS: BP 123/75; PULSE 73; RESP 14; TEMP 97.3; O2SAT 99
[2024-10-18 06:00] VITALS: BP 123/75; PULSE 83; RESP 24; TEMP 97.4; O2SAT 100
[2024-10-18 06:23] LABS: BASOPHILS % (AUTO) 0.1 % (0-1); EOSINOPHILS % (AUTO) 0 % (0-6); HEMATOCRIT 30.5 % (35.0-45.0); HEMOGLOBIN 10.1 g/dl (12.0-16.0); LYMPHOCYTES # (AUTO) 0.3 X10'3 (1.1-4.8); LYMPHOCYTES % (AUTO) 2.9 % (21-51); MEAN CORPUSCULAR HEMOGLOBIN 28.1 PG (27.0-31.0); MEAN CORPUSCULAR VOLUME 85.2 FL (78-98); MEAN PLATELET VOLUME 7.4 FL (7.4-10.4); MONOCYTES # (AUTO) 0.4 X10'3 (0-0.9); MONOCYTES % (AUTO) 4.1 % (2-12); NEUTROPHILS # (AUTO) 8.5 X10'3 (1.8-7.7); NEUTROPHILS % (AUTO) 92.9 % (42-75); PLATELET COUNT 297 X10'3 (140-440); RED BLOOD COUNT 3.58 X10'6 (4.20-5.60); RED CELL DISTRIBUTION WIDTH 15.7 % (11.5-14.5); WHITE BLOOD COUNT 9.2 X10'3 (4.5-11.0)
[2024-10-18 07:09] LABS: ALANINE AMINOTRANSFERASE 83 U/L (12-78); ALBUMIN 2.9 G/DL (3.4-5.0); ALBUMIN/GLOBULIN RATIO 0.8 (1.1-1.5); ALKALINE PHOSPHATASE 124 IU/L (46-116); ANION GAP 7 (8-16); ASPARTATE AMINO TRANSFERASE 43 U/L (10-37); BILIRUBIN,TOTAL 0.5 MG/DL (0.1-1.0); BLOOD UREA NITROGEN 77 MG/DL (7-18); BUN/CREATININE RATIO 36.2 (10.0-20.0); CALCIUM 8.4 MG/DL (8.5-10.1); CHLORIDE 105 MMOL/L (99-107); CREATININE 2.13 MG/DL (0.40-0.90); GLUCOSE 272 MG/DL (70-104); POTASSIUM 4.6 MMOL/L (3.5-5.1); SODIUM 142 MMOL/L (135-145); TOTAL PROTEIN 6.5 G/DL (6.4-8.2); eCRCL 18 ML/MIN; eGFR 23 ML/MIN
[2024-10-18] MEDS: azithromycin 250mg tablet PO SCH (08:38)
[2024-10-18 11:00] VITALS: BP 146/65; PULSE 89; RESP 20; TEMP 98.1; O2SAT 96
[2024-10-18] MEDS ORDERED: PRED10TA23 PO (12:22)
[2024-10-18] MEDS ORDERED: AZIT500T18 PO (12:22)
--- NOTE | 2024-10-18 18:21 | DISCHARGE SUMMARY ---
Discharge Summary Providers to Chief complaint, mild cough, shortness of breath asking to be discharged home for emergency family reasons ~ Discharge Summary Assessment COPD exacerbation, CHF systolic, associated with pulmonary hypertension in exacerbation Acute respiratory failure secondary to hypoxia Acute renal failure Non ST-elevation [place] type 2 secondary to all of the above Chronic respiratory failure on home oxygen in exacerbation Chronic kidney disease Coronary artery disease status post [place] Atrial fibrillation pacemaker status Diabetes mellitus type 2 fair control Additional comorbidities, anemia hemoglobin 9.9, GERD, hypertension, history of CVA, ex-smoker, dyslipidemia, depression on Cymbalta at home, multiple allergies Admission Diagnosis: COPD CHF Admission Diagnosis Comment: COPD exacerbation, CHF systolic, associated with pulmonary hypertension in exacerbation Acute respiratory failure secondary to hypoxia Acute renal failure Non ST-elevation [place] type 2 secondary to all of the above Chronic respiratory failure on home oxygen in exacerbation Chronic kidney disease Coronary artery disease status post [place] Atrial fibrillation pacemaker status Diabetes mellitus type 2 fair control Additional comorbidities, anemia hemoglobin 9.9, GERD, hypertension, history of CVA, ex-smoker, dyslipidemia, depression on Cymbalta at home, multiple allergies Hospital Course DATE OF ADMISSION: October 15, 2024 DATE OF DISCHARGE: October 18, 2024 Discharge Diagnosis\Comment: COPD exacerbation, CHF systolic, associated with pulmonary hypertension in exacerbation Acute respiratory failure secondary to hypoxia Acute renal failure Non ST-elevation [place] type 2 secondary to all of the above Chronic respiratory failure on home oxygen in exacerbation Chronic kidney disease Coronary artery disease status post [place] Atrial fibrillation pacemaker status Diabetes mellitus type 2 fair control Additional comorbidities, anemia hemoglobin 9.9, GERD, hypertension, history of CVA, ex-smoker, dyslipidemia, depression on Cymbalta at home, multiple allergies Operations\Procedures: None Consultants: Cardiology provider Complications: None Condition on DC: Stable Discharge Summary: This is a 74 year old female , with history of multiple medical problems including COPD secondary to tobacco smoking, quit two years ago, chronic kidney disease, CHF ejection fraction 50% associated with pulmonary hypertension in 2023, coronary artery disease, history of [place], anemia hemoglobin 9.9, atrial fibrillation, pacemaker status, hypertension, GERD, history of CVA, diabetes mellitus type 2, dyslipidemia, depression on Cymbalta at home, dyslipidemia, multiple allergies, presented today to emergency department chief complaint shortness of breath; in addition patient presents to the emergency department for complaints of shortness of breath. She states that she is having trouble breathing in addition to a non productive cough. She states that she has COPD and has experienced this before and states she is just having a flare up. She states that she tried nebulizers and inhalers at home. She states that her shortness of breath that worsens at night and she states she is unable to sleep flat. She is on home oxygen at 3L.Additionally she complains of swelling in her legs and states that she has a cut that is seeping fluid. She states that she is takingher lasix. She denies any chest pain. Of note, she was last admitted on 12/25/2023 for respiratory exacerbation. Her last ejection fraction was noted to be 40-45% in August of 2023. Patient denies any other associated symptoms at this time. Patient denies any other alleviating or exacerbating factors. Emergency department she patient was evaluated by physician was diagnosed CHF COPD exacerbation hypoxia, and decision was made to admit patient for further evaluation treatment. No additional complaint or concern. To admission patient was extensively evaluated and treated, today she feels better still has mild shortness of breath cough, I recommended continue to assist as inpatient, patient elected to be discharged for family emergency reasons, risk of severe complications and explained patient elects to be discharged he will be discharged in stable condition, medication reconciled, follow-up PCP cardiology in two days, return to emergency department if condition worsens, today on physical exam Vital signs, stable ,afebrile. Pulse Oximetry reflects adequate oxygenation on 2 L oxygen nasal cannula. General: well developed, well nourished. Awake , alert, and oriented x4, resting comfortably in the bed, in no acute distress . Skin: Warm, dry, no pallor, no rash or petechiae. HEENT: Atraumatic, normocephalic, EOMI, anicteric sclera B; pink conjunctiva; PERRLA, normal oropharynx, moist oral and nasal mucosa. Tympanic membrane , nose , throat clear. Neck: Trachea midline. Supple, full range of motion, no JVD, bruit , hepatojugular reflex , lymphadenopathy or masses, or other lesions Cardiac: Regular rhythm, regular rate no murmurs, rubs, or gallops. Normal S1 and S2, no S3 noticed. PMI is normal. Respiratory: Equal breath sounds bilaterally, no tachypnea; lungs clear to auscultation bilaterally, no wheezing ,rub or rales, or crackles. Chest wall is symmetric and without deformity. No signs of trauma. Chest wall is nontender. No signs of respiratory distress. Resonance is normal upon percussion bilaterally. Gastrointestinal: Abdomen symmetric, non-distended, soft, non-tender, normal bowel sounds x4 quadrant, normoactive, no hepatosplenomegaly , no masses , no bruit, no flank pain bilaterally. No voluntary guarding, rebound, or rigidity. No tenderness to percussion. No pulsatile masses. Equal femoral pulses. No Spangler's sign or McBurney point tenderness. Back; no CVA tenderness bilaterally, no deformities. Neck and back are without deformity as well. No tenderness noted on palpation of the spinous processes. Spinous processes are midline. Cervical, thoracic, and lumbar paraspinal muscles are not tender and are without spasm. Musculoskeletal: Extremities, normal range of motion, non-tender, muscle strength 5/5 x 4. Negative Homans signs bilaterally on lower extremity. Distal pulses full symmetrical, no clubbing, cyanosis , edema. Neurological: Speech is clear, alert, and oriented x 4. No motor or sensory deficit, deep tendon reflexes normal, cerebellar intact. Cranial nerves II-XII intact. Psych: Alert and or appropriate, normal affect. Vascular: Good distal pulses, which are equal x4; capillary refill less than 2 seconds. Lymphatic, no lymphadenopathy. *Problems/Diagnosis: (1) Diabetes mellitus Status: Acute (2) CHF exacerbation Status: Acute (3) Systolic heart failure Status: Acute (4) Chronic obstructive pulmonary disease Status: Acute Total Time Spent on D/C: > 30 Minutes Date of Service: Oct 18, 2024 Billing Provider: LOTTIE WASHINGTON MD Common Visit Codes: [id number] DISCH DAY >30min LOTTIE WASHINGTON MD Oct 18, 2024 18:21
== END 2024-10-18 16:51 | disposition home or self-care (01) | DRG 280 ==
LOC: ER 08:46 → ED HOLD 12:38 → PCU 3S 14:21
PROVIDERS: ADMIT Family Medicine; ATTEND Family Medicine
PROC: 4A02XM4 Measurement of Cardiac Total Activity, External Approach (ICD-10-PCS; principal; 2024-10-17)
PROC: 3E033HZ Introduction of Radioactive Substance into Peripheral Vein, Percutaneous Approach (ICD-10-PCS; 2024-10-17)
DX: I13.0 Hypertensive heart and chronic kidney disease with heart failure and stage 1 through stage 4 chronic kidney disease, or unspecified chronic kidney disease (principal); I50.43 Acute on chronic combined systolic (congestive) and diastolic (congestive) heart failure; I21.A1 Myocardial infarction type 2; J96.21 Acute and chronic respiratory failure with hypoxia; J44.1 Chronic obstructive pulmonary disease with (acute) exacerbation; N17.9 Acute kidney failure, unspecified; E11.22 Type 2 diabetes mellitus with diabetic chronic kidney disease; Z20.822 Contact with and (suspected) exposure to COVID-19; I27.20 Pulmonary hypertension, unspecified; I48.91 Unspecified atrial fibrillation; K21.9 Gastro-esophageal reflux disease without esophagitis; I34.0 Nonrheumatic mitral (valve) insufficiency; I25.10 Atherosclerotic heart disease of native coronary artery without angina pectoris; F32.A Depression, unspecified; N18.32 Chronic kidney disease, stage 3b; Z88.0 Allergy status to penicillin; Z88.5 Allergy status to narcotic agent; Z79.01 Long term (current) use of anticoagulants; Z79.84 Long term (current) use of oral hypoglycemic drugs; Z79.899 Other long term (current) drug therapy; Z87.891 Personal history of nicotine dependence; Z95.810 Presence of automatic (implantable) cardiac defibrillator; Z99.81 Dependence on supplemental oxygen; Z86.73 Personal history of transient ischemic attack (TIA), and cerebral infarction without residual deficits
CPT/HCPCS: 36410; 36415; 71045; 76937; 78452; 80053; 80061; 80076; 81001; 82948; 83036; 83605; 83735; 83880; 83930; 84100; 84145; 84439; 84443; 84484; 85025; 85379; 85610; 85730; 87040; 87081; 87502; 87503; 87811; 93005; 93017; 93306; 94640; 94760; 97110; 97116; 97162; 99285; A4620; A6212; A9500; C1751; G0378; J0456; J0696; J1815; J1938; J1940; J2785; J2919; J7030; J7040; J7050